=== PATIENT | female | born 1985 | race African-American/Black ===

== ENCOUNTER 2019-10-07 10:02 | Inpatient (IN) | payer OTHER ==
[~2019-10-07] VITALS: Ht 172.7 cm; Wt 81.6 kg
[2019-10-07] MEDS ORDERED: SODIUM CHLORIDE 0.9% 1,000 ML IV ONE (11:50)
[2019-10-07] MEDS ORDERED: ONDANSETRON HCL 4MG/2ML INJ IV ONE (12:00)
[2019-10-07] MEDS ORDERED: FAMOTIDINE 20MG/2ML VIAL IV ONE (12:00)
[2019-10-07 12:03] LABS: BASOPHILS % 0.5 % (0.0-2.0); HEMATOCRIT. 39.7 % (36.0-48.0); HEMOGLOBIN. 13.6 g/dL (12.0-16.0); LYMPHOCYTES % 12.5 % (20.0-50.0); MEAN CORPUSCULAR HEMOGLOBIN 33.7 pg (28.0-32.0); MEAN CORPUSCULAR VOLUME 98.2 fL (81.0-99.0); MEAN PLATELET VOLUME 8.1 fl (7.4-10.4); MONOCYTES % 11.5 % (2.0-8.0); NEUTROPHILS % 75.5 % (40.0-76.0); PLATELET 251 x1000/uL (130-400); RED BLOOD CELL COUNT 4.05 mill/uL (4.2-5.4); RED CELL DISTRIBUTION WIDTH 13.2 % (11.6-14.6)
[2019-10-07 12:08] LABS: CHLORIDE 106 mEq/L (98-107)
[2019-10-07 12:15] LABS: HCG SCREEN NEGATIVE
[2019-10-07 12:18] LABS: BETA HYDROXYBUTYRATE 1.9 mMol/L (0.0-0.3)
[2019-10-07 12:23] LABS: BG BASE EXCESS -7.1 mmol/L (-2.0-2.0); BG CARBOXYHEMOGLOBIN 0.2 % (0.5-1.5); BG DEOXYHEMOGLOBIN 3.1 % (0.0-5.0); BG FRACTION INSPIRED OXYGEN 21; BG METHEMOGLOBIN 0.1 % (0.0-1.5); BG OXYGEN SATURATION 96.9 % (92.0-98.5); BG OXYHEMOGLOBIN 96.6 % (94.0-97.0); BG PCO2 30.5 mmHg (35.0-45.0); BG PH 7.365 (7.350-7.450); BG SAMPLE SITE RIGHT RADIAL; BG TOTAL HEMOGLOBIN 13.2 g/dL (12.0-18.0); BG VENT MODE ROOM AIR
[2019-10-07 14:00] LABS: CLARITY URINE CLOUDY (CLEAR); COLOR URINE YELLOW (YELLOW); KETONES URINE 3+ (NEGATIVE); LEUKOCYTE ESTERASE URINE NEGATIVE (NEGATIVE); NITRITE URINE NEGATIVE (NEGATIVE); OCCULT BLOOD URINE NEGATIVE (NEGATIVE); PROTEIN URINE 1+ (NEGATIVE); SPECIFIC GRAVITY URINE 1.031 (1.005-1.030); UROBILINOGEN URINE 0.2 E.U./dL (0.2-1.0)
[2019-10-07] MEDS ORDERED: DEXTROSE 50% WATER 50ML SYRINGE IV PRN (16:15)
[2019-10-07] MEDS: BLOOD SUGAR DIAGNOSTIC STRIP TEST SCH (18:03)
[2019-10-07] MEDS: INSULIN LISPRO 100 UNITS/ML SUBCUT SCH (18:15)
[2019-10-07] MEDS: GUAIFENESIN/DM 600MG/30MG ER TAB 12HR PO SCH (18:15)
[2019-10-07] MEDS ORDERED: HYDROCODONE/ACETAMINOPHEN 5/325MG TABLET PO PRN (19:30)
[2019-10-07] MEDS ORDERED: ONDANSETRON HCL 4MG/2ML INJ IV PRN (19:30)
[2019-10-07] MEDS ORDERED: CLONIDINE 0.1MG TABLET PO PRN (19:30)
[2019-10-07] MEDS ORDERED: IPRATROPIUM/ALBUTEROL 0.5-3(2.5)MG/3ML NEB HHN PRN (19:30)
[2019-10-07] MEDS ORDERED: ACETAMINOPHEN 325MG TABLET PO PRN (19:30)
[2019-10-07] MEDS ORDERED: LORAZEPAM 0.5MG TABLET PO PRN (19:30)
[2019-10-07] MEDS ORDERED: DOCUSATE SODIUM 100MG CAPSULE PO PRN (19:30)
[2019-10-07] MEDS: SODIUM CHLORIDE 0.9% 1,000 ML IV SCH (23:08)
[2019-10-08] MEDS ORDERED: INSULIN GLARGINE UD 100 UNITS/ML SYR SUBCUT SCH (01:00)
[2019-10-08] MEDS: BLOOD SUGAR DIAGNOSTIC STRIP TEST SCH ×3 (01:21→12:51)
[2019-10-08 06:00] VITALS: BP 139/86
[2019-10-08 07:46] VITALS: BP 149/65
[2019-10-08] MEDS: INSULIN LISPRO 100 UNITS/ML SUBCUT SCH ×2 (07:50→13:08)
[2019-10-08 08:00] VITALS: BP 143/89
[2019-10-08] MEDS: GUAIFENESIN/DM 600MG/30MG ER TAB 12HR PO SCH (09:03)
[2019-10-08] MEDS: SODIUM CHLORIDE 0.9% 1,000 ML IV SCH (09:06)
[2019-10-08 09:11] LABS: BASOPHILS % 0.8 % (0.0-2.0); EOSINOPHILS % 0.1 % (0.0-5.0); HEMATOCRIT. 35.7 % (36.0-48.0); HEMOGLOBIN. 12.3 g/dL (12.0-16.0); LYMPHOCYTES % 21.5 % (20.0-50.0); MEAN CORPUSCULAR HEMOGLOBIN 33.1 pg (28.0-32.0); MEAN CORPUSCULAR VOLUME 96.4 fL (81.0-99.0); MEAN PLATELET VOLUME 7.8 fl (7.4-10.4); MONOCYTES % 10.8 % (2.0-8.0); NEUTROPHILS % 66.8 % (40.0-76.0); PLATELET 212 x1000/uL (130-400); RED BLOOD CELL COUNT 3.71 mill/uL (4.2-5.4); RED CELL DISTRIBUTION WIDTH 13.3 % (11.6-14.6)
[2019-10-08 09:21] LABS: CHLORIDE 107 mEq/L (98-107)
[2019-10-08] MEDS ORDERED: POTASSIUM CHLORIDE 20MEQ TABLET SR PO NR (10:30)
[2019-10-08] MEDS ORDERED: ACET650T37 MT (10:38)
[2019-10-08] MEDS ORDERED: ONDA4TAB5 MT (10:38)
[2019-10-08 14:00] VITALS: BP 150/90
[2019-10-08 14:11] VITALS: BP 150/90
== END 2019-10-08 14:31 | disposition home or self-care (01) | DRG 420 ==
LOC: ER 10:02 → 6EST 14:14 → EDBEDREQ 14:16 → EDBEDREQSVC 14:16 → ENRESERV 10-08 04:31
PROVIDERS: ADMIT Internal Medicine; ATTEND Internal Medicine
DX: E10.10 Type 1 diabetes mellitus with ketoacidosis without coma (principal); R65.10 Systemic inflammatory response syndrome (SIRS) of non-infectious origin without acute organ dysfunction; J11.1 Influenza due to unidentified influenza virus with other respiratory manifestations; D72.821 Monocytosis (symptomatic); Z79.4 Long term (current) use of insulin; Z90.49 Acquired absence of other specified parts of digestive tract
CPT/HCPCS: 36415; 36600; 71045; 76700; 80048; 80053; 81003; 82010; 82375; 82805; 82962; 84703; 85025; 87804; 99285; J1815; J2405; J3490; J7030

== ENCOUNTER 2019-12-31 17:48 | Inpatient (IN) | payer MEDICAID, OTHER ==
[~2019-12-31] VITALS: Ht 172.7 cm; Wt 81.6 kg
[~2019-12-31 17:48] MED LIST: ACET650T37 MT; ONDA4TAB5 MT
[2019-12-31] MEDS ORDERED: KETOROLAC 30MG/ML VIAL IV STA (18:29)
[2019-12-31] MEDS ORDERED: SODIUM CHLORIDE 0.9% 1,000 ML IV ONE ×2 (18:29→20:45)
[2019-12-31] MEDS ORDERED: ONDANSETRON HCL 4MG/2ML INJ IV STA (18:29)
[2019-12-31 19:16] LABS: CLARITY URINE CLEAR (CLEAR); COLOR URINE YELLOW (YELLOW); KETONES URINE 4+ (NEGATIVE); LEUKOCYTE ESTERASE URINE NEGATIVE (NEGATIVE); NITRITE URINE NEGATIVE (NEGATIVE); OCCULT BLOOD URINE 3+ (NEGATIVE); PH URINE 5.5 (4.5-8.0); PROTEIN URINE TRACE (NEGATIVE); SPECIFIC GRAVITY URINE 1.037 (1.005-1.030); UROBILINOGEN URINE 0.2 E.U./dL (0.2-1.0)
[2019-12-31 19:25] LABS: *AMPHETAMINES SCREEN URINE NEGATIVE (NEGATIVE); *BARBITURATES SCREEN URINE NEGATIVE (NEGATIVE); *BENZODIAZEPINES SCREEN URINE NEGATIVE (NEGATIVE); *COCAINE SCREEN URINE NEGATIVE (NEGATIVE); METHADONE URINE SCREEN NEGATIVE (NEGATIVE)
[2019-12-31 19:26] LABS: CANNABINOID URINE SCREEN PRESUMTIVE POSITIVE (NEGATIVE); OPIATES URINE SCREEN NEGATIVE (NEGATIVE); PHENCYCLIDINE URINE SCREEN NEGATIVE (NEGATIVE)
[2019-12-31 20:04] LABS: CHLORIDE 102 mEq/L (98-107)
[2019-12-31 20:08] LABS: ETHANOL BLOOD < 10 mg/dL
[2019-12-31 20:30] LABS: BASOPHILS % 0.6 % (0.0-2.0); EOSINOPHILS % 0.1 % (0.0-5.0); HEMOGLOBIN. 14.4 g/dL (12.0-16.0); MEAN CORPUSCULAR HEMOGLOBIN 33.1 pg (28.0-32.0); MEAN CORPUSCULAR VOLUME 96.5 fL (81.0-99.0); MEAN PLATELET VOLUME 8.5 fl (7.4-10.4); MONOCYTES % 3.6 % (2.0-8.0); NEUTROPHILS % 87.7 % (40.0-76.0); PLATELET 253 x1000/uL (130-400); RED BLOOD CELL COUNT 4.35 mill/uL (4.2-5.4); RED CELL DISTRIBUTION WIDTH 12.8 % (11.6-14.6)
[2019-12-31 20:38] LABS: INR 1.1
[2019-12-31] MEDS ORDERED: INSULIN REGULAR (HUMULIN R) 300UNITS/3ML SUBCUT ONE (20:45)
[2019-12-31] MEDS ORDERED: INSULIN REGULAR (DRIP) 100 UNITS in SODIUM CHLORIDE 0.9% 99 ML IV NR (22:15)
[2019-12-31] MEDS ORDERED: ONDANSETRON HCL 4MG/2ML INJ IV ONE (22:15)
[2019-12-31] MEDS ORDERED: INSULIN REGULAR (DRIP) 100 UNITS in SODIUM CHLORIDE 0.9% 99 ML IV ONE (22:15)
[2019-12-31 23:39] LABS: CHLORIDE 110 mEq/L (98-107)
[2019-12-31 23:43] LABS: BG BASE EXCESS -14.6 mmol/L (-2.0-2.0); BG CARBOXYHEMOGLOBIN 0.3 % (0.5-1.5); BG DEOXYHEMOGLOBIN 2.6 % (0.0-5.0); BG FRACTION INSPIRED OXYGEN 21; BG HCO3 ACT 9.9 mmol/L (22.0-26.0); BG METHEMOGLOBIN 0.1 % (0.0-1.5); BG OXYGEN SATURATION 97.4 % (92.0-98.5); BG PO2 104.8 mmHg (75.0-100.0); BG SAMPLE SITE LEFT BRACHIAL; BG TOTAL HEMOGLOBIN 12.7 g/dL (12.0-18.0); BG VENT MODE ROOM AIR
[2020-01-01] MEDS ORDERED: INSULIN REGULAR (HUMULIN R) 300UNITS/3ML SUBCUT ONE
[2020-01-01] MEDS ORDERED: HYDROCODONE/ACETAMINOPHEN 10/325MG TABLET PO PRN (00:15)
[2020-01-01] MEDS ORDERED: NA PHOS,M-B/NA PHOS,DI-BA ENEMA 118ML PR PRN (00:15)
[2020-01-01] MEDS ORDERED: CLONIDINE 0.1MG TABLET PO PRN (00:15)
[2020-01-01] MEDS ORDERED: DEXTROSE 50% WATER 50ML SYRINGE IV PRN (00:15)
[2020-01-01] MEDS ORDERED: DIPHENHYDRAMINE 50MG/ML VIAL IV PRN (00:15)
[2020-01-01] MEDS ORDERED: GUAIFENESIN 200MG/10ML SUGAR FREE UDC PO PRN (00:15)
[2020-01-01] MEDS ORDERED: DOCUSATE SODIUM 100MG CAPSULE PO PRN (00:15)
[2020-01-01] MEDS ORDERED: HYDRALAZINE 20MG/ML VIAL IV PRN (00:15)
[2020-01-01] MEDS ORDERED: IPRATROPIUM/ALBUTEROL 0.5-3(2.5)MG/3ML NEB NEB PRN (00:15)
[2020-01-01] MEDS ORDERED: MAGNESIUM/ALUMINUM HYDROXIDE/SIMETHICONE 30ML UDC PO PRN (00:15)
[2020-01-01] MEDS: SODIUM CHL 0.45% + KCL 20MEQ/L 1,000 ML IV SCH ×4 (00:58→18:00)
[2020-01-01] MEDS ORDERED: ONDANSETRON HCL 4MG/2ML INJ IV PRN (01:18)
[2020-01-01] MEDS ORDERED: MORPHINE SULFATE 2 MG/ML CPJ (NOT FOR IM USE) IV PRN (01:19)
[2020-01-01] MEDS: MORPHINE SULFATE 2 MG/ML CPJ (NOT FOR IM USE) IV PRN ×2 (06:13→20:56)
[2020-01-01] MEDS: ONDANSETRON HCL 4MG/2ML INJ IV PRN (06:13)
[2020-01-01] MEDS: SODIUM CHLORIDE 0.9% INJ 3ML FLUSH IVF SCH ×3 (07:30→21:34)
[2020-01-01 07:48] LABS: BG BASE EXCESS -12.4 mmol/L (-2.0-2.0); BG CARBOXYHEMOGLOBIN 0.3 % (0.5-1.5); BG DEOXYHEMOGLOBIN 2.5 % (0.0-5.0); BG FRACTION INSPIRED OXYGEN 21; BG HCO3 ACT 12.2 mmol/L (22.0-26.0); BG METHEMOGLOBIN 0.2 % (0.0-1.5); BG OXYGEN SATURATION 97.5 % (92.0-98.5); BG PCO2 25.3 mmHg (35.0-45.0); BG PH 7.302 (7.350-7.450); BG PO2 108.8 mmHg (75.0-100.0); BG SAMPLE SITE RIGHT RADIAL; BG TOTAL HEMOGLOBIN 12.9 g/dL (12.0-18.0); BG VENT MODE ROOM AIR
[2020-01-01 08:03] LABS: BASOPHILS % 0.9 % (0.0-2.0); EOSINOPHILS % 0.2 % (0.0-5.0); HEMATOCRIT. 36.6 % (36.0-48.0); HEMOGLOBIN. 12.7 g/dL (12.0-16.0); LYMPHOCYTES % 20.7 % (20.0-50.0); MEAN CORPUSCULAR VOLUME 95.1 fL (81.0-99.0); MEAN PLATELET VOLUME 8.4 fl (7.4-10.4); NEUTROPHILS % 69.2 % (40.0-76.0); PLATELET 243 x1000/uL (130-400); RED BLOOD CELL COUNT 3.85 mill/uL (4.2-5.4); RED CELL DISTRIBUTION WIDTH 12.6 % (11.6-14.6)
[2020-01-01 08:04] LABS: CHLORIDE 112 mEq/L (98-107)
[2020-01-01] MEDS: BLOOD SUGAR DIAGNOSTIC STRIP TEST SCH ×4 (09:00→21:00)
[2020-01-01 09:30] VITALS: BP 115/63
[2020-01-01] MEDS: ENOXAPARIN 40MG/0.4ML SYR SUBCUT SCH (10:03)
[2020-01-01] MEDS: INSULIN LISPRO 100 UNITS/ML SUBCUT SCH ×4 (10:04→21:00)
[2020-01-01] MEDS ORDERED: INSLIS SUBCUT (11:49)
[2020-01-01 12:00] VITALS: BP 115/63
[2020-01-01] MEDS: METOCLOPRAMIDE HCL 10MG/2ML VIAL IV SCH ×2 (13:28→19:56)
[2020-01-01 16:00] VITALS: BP 110/61
[2020-01-01] MEDS: CEFTRIAXONE 1 G PREMIX 50 ML IV SCH (19:56)
[2020-01-01 20:00] VITALS: BP 136/55
[2020-01-01] MEDS: ACETAMINOPHEN 325MG TABLET PO PRN (21:36)
[2020-01-02] VITALS (7 sets, daily range): BP systolic 100–143; BP diastolic 46–81
[2020-01-02] MEDS: METOCLOPRAMIDE HCL 10MG/2ML VIAL IV SCH ×5 (00:41→18:11)
[2020-01-02] MEDS: SODIUM CHL 0.45% + KCL 20MEQ/L 1,000 ML IV SCH ×3 (00:41→15:03)
[2020-01-02] MEDS: MORPHINE SULFATE 2 MG/ML CPJ (NOT FOR IM USE) IV PRN ×3 (02:25→20:53)
[2020-01-02] MEDS: LORAZEPAM 2MG/ML CPJ IV PRN ×2 (05:09→18:29)
[2020-01-02] MEDS: SODIUM CHLORIDE 0.9% INJ 3ML FLUSH IVF SCH ×2 (05:09→13:36)
[2020-01-02] MEDS: BLOOD SUGAR DIAGNOSTIC STRIP TEST SCH ×4 (06:16→20:46)
[2020-01-02] MEDS: INSULIN LISPRO 100 UNITS/ML SUBCUT SCH ×4 (06:23→20:52)
[2020-01-02] MEDS: ENOXAPARIN 40MG/0.4ML SYR SUBCUT SCH (09:07)
[2020-01-02 11:26] LABS: BASOPHILS % 0.5 % (0.0-2.0); HEMATOCRIT. 39.6 % (36.0-48.0); HEMOGLOBIN. 13.1 g/dL (12.0-16.0); LYMPHOCYTES % 18.3 % (20.0-50.0); MEAN CORPUSCULAR HEMOGLOBIN 32.4 pg (28.0-32.0); MEAN CORPUSCULAR VOLUME 97.8 fL (81.0-99.0); MEAN PLATELET VOLUME 8.3 fl (7.4-10.4); MONOCYTES % 9.3 % (2.0-8.0); NEUTROPHILS % 71.9 % (40.0-76.0); PLATELET 249 x1000/uL (130-400); RED BLOOD CELL COUNT 4.05 mill/uL (4.2-5.4); RED CELL DISTRIBUTION WIDTH 12.9 % (11.6-14.6)
[2020-01-02 11:37] LABS: CHLORIDE 107 mEq/L (98-107)
[2020-01-02] MEDS: ONDANSETRON HCL 4MG/2ML INJ IV PRN (16:26)
[2020-01-02] MEDS: CEFTRIAXONE 1 G PREMIX 50 ML IV SCH (16:43)
[2020-01-03] VITALS: BP 117/68
[2020-01-03] MEDS: METOCLOPRAMIDE HCL 10MG/2ML VIAL IV SCH ×3 (00:46→12:04)
[2020-01-03] MEDS: SODIUM CHLORIDE 0.9% INJ 3ML FLUSH IVF SCH ×2 (00:46→05:23)
[2020-01-03] MEDS: LORAZEPAM 2MG/ML CPJ IV PRN (02:44)
[2020-01-03] MEDS: ACETAMINOPHEN 325MG TABLET PO PRN (03:24)
[2020-01-03 04:00] VITALS: BP 128/61
[2020-01-03] MEDS: MORPHINE SULFATE 2 MG/ML CPJ (NOT FOR IM USE) IV PRN (04:16)
[2020-01-03] MEDS: INSULIN LISPRO 100 UNITS/ML SUBCUT SCH ×2 (05:49→12:26)
[2020-01-03] MEDS: BLOOD SUGAR DIAGNOSTIC STRIP TEST SCH ×2 (05:49→12:05)
[2020-01-03] MEDS: SODIUM CHL 0.45% + KCL 20MEQ/L 1,000 ML IV SCH ×2 (06:03→08:59)
[2020-01-03 08:30] VITALS: BP 146/78
[2020-01-03] MEDS: ENOXAPARIN 40MG/0.4ML SYR SUBCUT SCH (08:59)
[2020-01-03 10:47] VITALS: BP 145/67
[2020-01-03 12:00] VITALS: BP 139/88
[2020-01-03 12:52] LABS: CHLORIDE 106 mEq/L (98-107)
== END 2020-01-03 13:35 | disposition home or self-care (01) | DRG 420 ==
LOC: ER 17:48 → 5WST 23:56 → EDBEDREQ 01-01 00:16 → EDBEDREQSVC 01-01 05:42 → ENRESERV 01-01 07:52
PROVIDERS: ADMIT Internal Medicine; ATTEND Internal Medicine
DX: E11.10 Type 2 diabetes mellitus with ketoacidosis without coma (principal); E46 Unspecified protein-calorie malnutrition; K76.0 Fatty (change of) liver, not elsewhere classified; K52.9 Noninfective gastroenteritis and colitis, unspecified; N39.0 Urinary tract infection, site not specified; N83.201 Unspecified ovarian cyst, right side; Z90.49 Acquired absence of other specified parts of digestive tract; Z68.27 Body mass index [BMI] 27.0-27.9, adult; Z79.899 Other long term (current) drug therapy
CPT/HCPCS: 36415; 36600; 74176; 80048; 80053; 80305; 80320; 81003; 82010; 82375; 82805; 82962; 85025; 99291; J0696; J1200; J1650; J1815; J1885; J2060; J2270; J2405; J2765; J3480; J7030; J7050; G0480

== ENCOUNTER 2020-01-11 13:46 | Inpatient (IN) | payer MEDICAID, OTHER ==
[~2020-01-11] VITALS: Ht 160 cm; Wt 65.8 kg
[~2020-01-11 13:46] MED LIST changes: +INSLIS SUBCUT
[2020-01-11] MEDS ORDERED: SODIUM CHLORIDE 0.9% 1,000 ML IV ONE (13:50)
[2020-01-11] MEDS ORDERED: KETOROLAC 30MG/ML VIAL IV ONE (14:00)
[2020-01-11 14:49] LABS: BG BASE EXCESS -10.6 mmol/L (-2.0-2.0); BG CARBOXYHEMOGLOBIN 0.3 % (0.5-1.5); BG DEOXYHEMOGLOBIN 2.1 % (0.0-5.0); BG FRACTION INSPIRED OXYGEN 21; BG HCO3 ACT 12.6 mmol/L (22.0-26.0); BG METHEMOGLOBIN 0.1 % (0.0-1.5); BG OXYGEN SATURATION 97.9 % (92.0-98.5); BG OXYHEMOGLOBIN 97.5 % (94.0-97.0); BG PCO2 22.3 mmHg (35.0-45.0); BG PH 7.369 (7.350-7.450); BG PO2 111.6 mmHg (75.0-100.0); BG SAMPLE SITE RIGHT BRACHIAL; BG TOTAL HEMOGLOBIN 13.7 g/dL (12.0-18.0); BG VENT MODE ROOM AIR
[2020-01-11 15:19] LABS: BASOPHILS % 0.6 % (0.0-2.0); EOSINOPHILS % 0.1 % (0.0-5.0); HEMATOCRIT. 41.3 % (36.0-48.0); HEMOGLOBIN. 14.2 g/dL (12.0-16.0); LYMPHOCYTES % 17.8 % (20.0-50.0); MEAN CORPUSCULAR HEMOGLOBIN 32.6 pg (28.0-32.0); MEAN CORPUSCULAR VOLUME 94.4 fL (81.0-99.0); MEAN PLATELET VOLUME 8.7 fl (7.4-10.4); MONOCYTES % 10.6 % (2.0-8.0); NEUTROPHILS % 70.9 % (40.0-76.0); PLATELET 321 x1000/uL (130-400); RED BLOOD CELL COUNT 4.37 mill/uL (4.2-5.4); RED CELL DISTRIBUTION WIDTH 13.2 % (11.6-14.6)
[2020-01-11 15:27] LABS: CHLORIDE 87 mEq/L (98-107)
[2020-01-11 15:31] LABS: ETHANOL BLOOD < 10 mg/dL
[2020-01-11 15:36] LABS: HCG SCREEN NEGATIVE
[2020-01-11 15:44] LABS: CARBAMAZEPINE < 0.5 ug/mL (4-12); PHENOBARBITAL < 2.1 ug/mL (15.0-40.0); VALPROIC ACID < 3.0 ug/mL (50-100)
[2020-01-11] MEDS ORDERED: MORPHINE SULFATE 4 MG/ML CPJ (NOT FOR IM USE) IV ONE (16:15)
[2020-01-11] MEDS ORDERED: INSULIN REGULAR (HUMULIN R) 300UNITS/3ML IV ONE (16:15)
[2020-01-11 16:24] LABS: CLARITY URINE CLEAR (CLEAR); COLOR URINE YELLOW (YELLOW); KETONES URINE 4+ (NEGATIVE); LEUKOCYTE ESTERASE URINE NEGATIVE (NEGATIVE); NITRITE URINE NEGATIVE (NEGATIVE); OCCULT BLOOD URINE NEGATIVE (NEGATIVE); PROTEIN URINE NEGATIVE (NEGATIVE); SPECIFIC GRAVITY URINE 1.028 (1.005-1.030); UROBILINOGEN URINE 0.2 E.U./dL (0.2-1.0)
[2020-01-11 16:45] LABS: *BENZODIAZEPINES SCREEN URINE NEGATIVE (NEGATIVE); *COCAINE SCREEN URINE NEGATIVE (NEGATIVE)
[2020-01-11 16:46] LABS: *AMPHETAMINES SCREEN URINE NEGATIVE (NEGATIVE); *BARBITURATES SCREEN URINE NEGATIVE (NEGATIVE); CANNABINOID URINE SCREEN NEGATIVE (NEGATIVE); METHADONE URINE SCREEN NEGATIVE (NEGATIVE); OPIATES URINE SCREEN NEGATIVE (NEGATIVE); PHENCYCLIDINE URINE SCREEN NEGATIVE (NEGATIVE)
[2020-01-11] MEDS ORDERED: ACETAMINOPHEN 325MG TABLET PO PRN (17:00)
[2020-01-11] MEDS ORDERED: ONDANSETRON HCL 4MG/2ML INJ IV PRN (17:00)
[2020-01-11 19:00] VITALS: BP 105/69
[2020-01-11 20:00] VITALS: BP 98/59
[2020-01-11] MEDS: BLOOD SUGAR DIAGNOSTIC STRIP TEST SCH (21:00)
[2020-01-11] MEDS: SODIUM CHLORIDE 0.9% 1,000 ML IV SCH (21:43)
[2020-01-11] MEDS: ENOXAPARIN 40MG/0.4ML SYR SUBCUT SCH (21:52)
[2020-01-11] MEDS: INSULIN LISPRO 100 UNITS/ML SUBCUT SCH (22:11)
[2020-01-11] MEDS: MORPHINE SULFATE 2 MG/ML CPJ (NOT FOR IM USE) IV PRN (22:12)
[2020-01-11 23:42] LABS: CHLORIDE 96 mEq/L (98-107)
[2020-01-12] VITALS: BP 96/60
[2020-01-12] MEDS ORDERED: POTASSIUM CHLORIDE 20MEQ TABLET SR PO SCH (00:29)
[2020-01-12] MEDS: SODIUM CHLORIDE 0.9% 1,000 ML IV SCH ×4 (00:36→22:10)
[2020-01-12 04:00] VITALS: BP 106/56
[2020-01-12] MEDS: BLOOD SUGAR DIAGNOSTIC STRIP TEST SCH ×4 (06:00→20:07)
[2020-01-12] MEDS: MORPHINE SULFATE 2 MG/ML CPJ (NOT FOR IM USE) IV PRN ×3 (06:01→21:25)
[2020-01-12] MEDS: INSULIN LISPRO 100 UNITS/ML SUBCUT SCH ×5 (06:11→20:07)
[2020-01-12 08:00] VITALS: BP 100/42
[2020-01-12 11:50] VITALS: BP 97/48
[2020-01-12] MEDS ORDERED: INSULIN LISPRO 100 UNITS/ML SUBCUT SCH (12:30)
[2020-01-12 16:00] VITALS: BP 91/42
[2020-01-12 16:03] LABS: BASOPHILS % 0.4 % (0.0-2.0); EOSINOPHILS % 0.1 % (0.0-5.0); HEMATOCRIT. 33.5 % (36.0-48.0); HEMOGLOBIN. 11.6 g/dL (12.0-16.0); LYMPHOCYTES % 19.8 % (20.0-50.0); MEAN CORPUSCULAR HEMOGLOBIN 32.6 pg (28.0-32.0); MEAN PLATELET VOLUME 7.9 fl (7.4-10.4); MONOCYTES % 13.8 % (2.0-8.0); NEUTROPHILS % 65.9 % (40.0-76.0); PLATELET 304 x1000/uL (130-400); RED BLOOD CELL COUNT 3.56 mill/uL (4.2-5.4); RED CELL DISTRIBUTION WIDTH 13.2 % (11.6-14.6)
[2020-01-12 16:17] LABS: CHLORIDE 103 mEq/L (98-107)
[2020-01-12] MEDS: ENOXAPARIN 40MG/0.4ML SYR SUBCUT SCH (17:01)
[2020-01-12 20:00] VITALS: BP 96/51
[2020-01-12] MEDS: INSULIN GLARGINE UD 100 UNITS/ML SYR SUBCUT SCH (21:15)
[2020-01-12] MEDS ORDERED: INSULIN GLARGINE UD 100 UNITS/ML SYR SUBCUT SCH (22:00)
[2020-01-13] VITALS: BP 101/38
[2020-01-13] MEDS: MORPHINE SULFATE 2 MG/ML CPJ (NOT FOR IM USE) IV PRN ×4 (02:59→21:50)
[2020-01-13 04:00] VITALS: BP 104/54
[2020-01-13] MEDS: BLOOD SUGAR DIAGNOSTIC STRIP TEST SCH ×4 (05:58→21:00)
[2020-01-13] MEDS: INSULIN LISPRO 100 UNITS/ML SUBCUT SCH ×7 (05:58→21:00)
[2020-01-13] MEDS: SODIUM CHLORIDE 0.9% 1,000 ML IV SCH ×2 (06:16→15:44)
[2020-01-13 06:43] LABS: BASOPHILS % 0.3 % (0.0-2.0); EOSINOPHILS % 0.4 % (0.0-5.0); HEMATOCRIT. 29.8 % (36.0-48.0); HEMOGLOBIN. 10.7 g/dL (12.0-16.0); LYMPHOCYTES % 28.4 % (20.0-50.0); MEAN CORPUSCULAR HEMOGLOBIN 33.2 pg (28.0-32.0); MEAN CORPUSCULAR VOLUME 92.5 fL (81.0-99.0); MEAN PLATELET VOLUME 7.8 fl (7.4-10.4); MONOCYTES % 13.9 % (2.0-8.0); PLATELET 297 x1000/uL (130-400); RED BLOOD CELL COUNT 3.22 mill/uL (4.2-5.4); RED CELL DISTRIBUTION WIDTH 13.1 % (11.6-14.6)
[2020-01-13 07:21] LABS: CHLORIDE 103 mEq/L (98-107)
[2020-01-13 08:00] VITALS: BP 133/88
[2020-01-13] MEDS: INSULIN GLARGINE UD 100 UNITS/ML SYR SUBCUT SCH ×2 (10:33→22:31)
[2020-01-13 12:00] VITALS: BP 135/68
[2020-01-13] MEDS ORDERED: POTASSIUM CHLORIDE 20MEQ TABLET SR PO NR (15:15)
[2020-01-13] MEDS: LEVETIRACETAM 500MG PREMIX 100 ML IV SCH ×2 (15:43→22:14)
[2020-01-13] MEDS: LACTULOSE 20G/30ML UDC PO SCH ×3 (15:44→17:37)
[2020-01-13] MEDS: GABAPENTIN 100MG CAPSULE PO SCH ×2 (15:45→21:51)
[2020-01-13 16:00] VITALS: BP 108/85
[2020-01-13 16:29] LABS: CREATINE KINASE 132 IU/L (26-192)
[2020-01-13 16:32] LABS: T4 FREE 1.08 ng/dL (0.76-1.46)
[2020-01-13 16:51] LABS: FOLIC ACID (FOLATE) SERUM 9.1 ng/mL (>5.38)
[2020-01-13] MEDS: ENOXAPARIN 40MG/0.4ML SYR SUBCUT SCH (17:28)
[2020-01-13] MEDS: DOCUSATE SODIUM 100MG CAPSULE PO SCH (17:28)
[2020-01-13] MEDS: LIDOCAINE 5% PATCH TOP SCH (17:29)
[2020-01-13] MEDS ORDERED: CEFTRIAXONE 1 G PREMIX 50 ML IV SCH (18:30)
[2020-01-13 20:00] VITALS: BP 140/94
[2020-01-13] MEDS: ONDANSETRON HCL 4MG/2ML INJ IV PRN (21:47)
[2020-01-13] MEDS: POLYETHYLENE GLYCOL 3350 (17GM) 1 DOSE PACK PO SCH (21:51)
[2020-01-13] MEDS: CEFTRIAXONE 1 G PREMIX 50 ML IV SCH (21:51)
[2020-01-14] VITALS: BP 120/75
[2020-01-14] MEDS: ONDANSETRON HCL 4MG/2ML INJ IV PRN (02:57)
[2020-01-14] MEDS: MORPHINE SULFATE 2 MG/ML CPJ (NOT FOR IM USE) IV PRN ×3 (02:59→20:55)
[2020-01-14 04:00] VITALS: BP 115/64
[2020-01-14] MEDS: SODIUM CHLORIDE 0.9% 1,000 ML IV SCH ×2 (04:40→17:22)
[2020-01-14] MEDS: DEXTROSE 50% WATER 50ML SYRINGE IV PRN ×2 (05:33→16:41)
[2020-01-14] MEDS: GABAPENTIN 100MG CAPSULE PO SCH ×3 (05:41→20:53)
[2020-01-14] MEDS: BLOOD SUGAR DIAGNOSTIC STRIP TEST SCH ×4 (05:55→21:19)
[2020-01-14] MEDS: INSULIN LISPRO 100 UNITS/ML SUBCUT SCH ×7 (06:00→20:55)
[2020-01-14 06:36] LABS: CHLORIDE 106 mEq/L (98-107)
[2020-01-14 08:00] VITALS: BP 148/117
[2020-01-14] MEDS: DOCUSATE SODIUM 100MG CAPSULE PO SCH ×2 (08:39→16:44)
[2020-01-14] MEDS: LEVETIRACETAM 500MG PREMIX 100 ML IV SCH ×2 (08:40→20:55)
[2020-01-14] MEDS: LIDOCAINE 5% PATCH TOP SCH (08:54)
[2020-01-14] MEDS: INSULIN GLARGINE UD 100 UNITS/ML SYR SUBCUT SCH (10:46)
[2020-01-14 12:00] VITALS: BP 120/93
[2020-01-14] MEDS ORDERED: KCL 20MEQ/100ML PREMIX 100 ML IV NR (14:00)
[2020-01-14 16:00] VITALS: BP 118/91
[2020-01-14] MEDS: POTASSIUM CHLORIDE INJ 40 MEQ in DEXT 5% WATER 500 ML IV NR ×2 (16:40→18:21)
[2020-01-14] MEDS ORDERED: INSULIN LISPRO 100 UNITS/ML SUBCUT SCH (16:45)
[2020-01-14] MEDS: ENOXAPARIN 40MG/0.4ML SYR SUBCUT SCH (16:46)
[2020-01-14] MEDS: CEFTRIAXONE 1 G PREMIX 50 ML IV SCH (18:12)
[2020-01-14 20:00] VITALS: BP 97/57
[2020-01-14] MEDS: POLYETHYLENE GLYCOL 3350 (17GM) 1 DOSE PACK PO SCH (21:00)
[2020-01-15] VITALS: BP 104/53
[2020-01-15] MEDS: MORPHINE SULFATE 2 MG/ML CPJ (NOT FOR IM USE) IV PRN ×2 (01:42→09:50)
[2020-01-15 04:00] VITALS: BP 122/76
[2020-01-15] MEDS: SODIUM CHLORIDE 0.9% 1,000 ML IV SCH (06:01)
[2020-01-15] MEDS: BLOOD SUGAR DIAGNOSTIC STRIP TEST SCH ×2 (06:21→11:45)
[2020-01-15] MEDS: INSULIN LISPRO 100 UNITS/ML SUBCUT SCH ×2 (06:40→12:34)
[2020-01-15] MEDS: GABAPENTIN 100MG CAPSULE PO SCH ×2 (06:40→14:03)
[2020-01-15 08:00] VITALS: BP 116/54
[2020-01-15] MEDS: DOCUSATE SODIUM 100MG CAPSULE PO SCH (08:25)
[2020-01-15] MEDS: LIDOCAINE 5% PATCH TOP SCH (08:26)
[2020-01-15] MEDS: LEVETIRACETAM 500MG PREMIX 100 ML IV SCH (08:50)
[2020-01-15] MEDS ORDERED: INSULIN LISPRO 100 UNITS/ML SUBCUT SCH (11:45)
[2020-01-15 11:53] VITALS: BP 103/55
[2020-01-15 12:00] VITALS: BP 108/61
[2020-01-15 16:00] VITALS: BP 103/55
== END 2020-01-15 16:25 | DRG 420 ==
LOC: ER 14:01 → MICUSO 16:07 → 5WST 18:46
PROVIDERS: ADMIT Internal Medicine; ATTEND Internal Medicine
DX: E11.00 Type 2 diabetes mellitus with hyperosmolarity without nonketotic hyperglycemic-hyperosmolar coma (NKHHC) (principal); G92 Toxic encephalopathy; E87.2 Acidosis; E11.42 Type 2 diabetes mellitus with diabetic polyneuropathy; R13.11 Dysphagia, oral phase; E11.65 Type 2 diabetes mellitus with hyperglycemia; E11.10 Type 2 diabetes mellitus with ketoacidosis without coma; G40.909 Epilepsy, unspecified, not intractable, without status epilepticus; I10 Essential (primary) hypertension; E87.1 Hypo-osmolality and hyponatremia; R26.2 Difficulty in walking, not elsewhere classified; R74.0 Nonspecific elevation of levels of transaminase and lactic acid dehydrogenase [LDH]; D64.9 Anemia, unspecified; K59.00 Constipation, unspecified; R33.9 Retention of urine, unspecified; D72.829 Elevated white blood cell count, unspecified; Z79.4 Long term (current) use of insulin; Z90.49 Acquired absence of other specified parts of digestive tract; Z79.1 Long term (current) use of non-steroidal anti-inflammatories (NSAID); Z79.899 Other long term (current) drug therapy; Z91.19 Patient's noncompliance with other medical treatment and regimen; Z87.440 Personal history of urinary (tract) infections
CPT/HCPCS: 36415; 36600; 70551; 71045; 72141; 72146; 72148; 80048; 80053; 80156; 80165; 80184; 80185; 80305; 80320; 81003; 82140; 82375; 82550; 82607; 82746; 82805; 82962; 83036; 84439; 84443; 84481; 84484; 84703; 85025; 92610; 97116; 97162; 97166; 99285; J0696; J1650; J1815; J1885; J1953; J2270; J2405; J3480; J7030; J7060; G0480

== ENCOUNTER 2020-01-21 17:14 | Inpatient (IN) | payer MEDICAID, OTHER ==
[~2020-01-21] VITALS: Ht 167.6 cm; Wt 74.8 kg
[2020-01-21] MEDS ORDERED: OXYCODONE HCL 5MG TABLET PO PRN (17:30)
[2020-01-21] MEDS ORDERED: ONDANSETRON HCL 4MG TABLET PO PRN (17:30)
[2020-01-21] MEDS ORDERED: DEXTROSE 50% WATER 50ML SYRINGE IV PRN (17:30)
[2020-01-21 17:38] VITALS: BP 120/80
[2020-01-21 20:00] VITALS: BP 120/102
[2020-01-21] MEDS: LAMOTRIGINE 100MG TABLET PO SCH (20:33)
[2020-01-21] MEDS: OXYCODONE HCL 5MG TABLET PO PRN (20:34)
[2020-01-21] MEDS: BLOOD SUGAR DIAGNOSTIC STRIP TEST SCH (20:42)
[2020-01-21] MEDS: POLYETHYLENE GLYCOL 3350 (17GM) 1 DOSE PACK PO SCH (20:43)
[2020-01-21] MEDS: CEFTRIAXONE 1 G PREMIX 50 ML IV SCH (20:53)
[2020-01-21] MEDS: SODIUM CHLORIDE 0.9% 1,000 ML IV SCH (20:53)
[2020-01-21] MEDS: INSULIN LISPRO 100 UNITS/ML SUBCUT SCH (21:14)
[2020-01-21] MEDS: INSULIN GLARGINE UD 100 UNITS/ML SYR SUBCUT SCH (21:15)
[2020-01-22] VITALS (7 sets, daily range): BP systolic 80–145; BP diastolic 48–96
[2020-01-22] MEDS: DIPHENHYDRAMINE 50MG/ML VIAL IV PRN ×4 (01:07→20:18)
[2020-01-22] MEDS: OXYCODONE HCL 5MG TABLET PO PRN ×3 (01:15→10:12)
[2020-01-22 05:46] LABS: CHLORIDE 100 mEq/L (98-107)
[2020-01-22] MEDS: BLOOD SUGAR DIAGNOSTIC STRIP TEST SCH ×4 (06:07→20:27)
[2020-01-22] MEDS: INSULIN LISPRO 100 UNITS/ML SUBCUT SCH ×4 (07:10→20:27)
[2020-01-22 08:52] LABS: HEMOGLOBIN 9.9 g/dL (12.0-16.0); MEAN CORPUSCULAR VOLUME 93.4 fL (81.0-99.0); PLATELET 333 x1000/uL (130-400); RED CELL DISTRIBUTION WIDTH 13.4 % (11.6-14.6)
[2020-01-22] MEDS: SODIUM CHLORIDE 0.9% 1,000 ML IV SCH ×2 (08:56→18:19)
[2020-01-22] MEDS: LAMOTRIGINE 100MG TABLET PO SCH ×2 (09:03→20:19)
[2020-01-22] MEDS: LACTULOSE 20G/30ML UDC PO PRN (09:03)
[2020-01-22] MEDS: DOCUSATE SODIUM 100MG CAPSULE PO SCH ×2 (09:03→17:00)
[2020-01-22] MEDS: FLUDROCORTISONE ACETATE 0.1MG TABLET PO SCH ×2 (09:03→17:00)
[2020-01-22] MEDS: BISACODYL 5MG TABLET PO PRN (09:03)
[2020-01-22] MEDS: LIDOCAINE 5% PATCH TOP SCH (09:05)
[2020-01-22] MEDS: MIDODRINE HCL 2.5MG TABLET PO SCH ×3 (09:16→17:00)
[2020-01-22] MEDS: INSULIN GLARGINE UD 100 UNITS/ML SYR SUBCUT SCH ×2 (10:13→20:34)
[2020-01-22] MEDS: ENOXAPARIN 40MG/0.4ML SYR SUBCUT SCH (12:00)
[2020-01-22] MEDS ORDERED: HYDROCODONE/ACETAMINOPHEN 5/325MG TABLET PO PRN (19:30)
[2020-01-22] MEDS: POLYETHYLENE GLYCOL 3350 (17GM) 1 DOSE PACK PO SCH (20:23)
[2020-01-22] MEDS: CEFTRIAXONE 1 G PREMIX 50 ML IV SCH (20:31)
[2020-01-22] MEDS ORDERED: ERGOCALCIFEROL 50000UNITS CAPSULE PO SCH (21:00)
[2020-01-23] VITALS (7 sets, daily range): BP systolic 112–147; BP diastolic 63–93
[2020-01-23] MEDS: HYDROCODONE/ACETAMINOPHEN 5/325MG TABLET PO PRN ×5 (00:13→23:47)
[2020-01-23] MEDS: SODIUM CHLORIDE 0.9% 1,000 ML IV SCH ×2 (04:34→21:35)
[2020-01-23] MEDS: DIPHENHYDRAMINE 50MG/ML VIAL IV PRN ×3 (04:35→18:29)
[2020-01-23] MEDS: BLOOD SUGAR DIAGNOSTIC STRIP TEST SCH ×4 (06:36→21:00)
[2020-01-23] MEDS: INSULIN LISPRO 100 UNITS/ML SUBCUT SCH ×4 (06:36→23:37)
[2020-01-23 08:33] LABS: CHLORIDE 101 mEq/L (98-107)
[2020-01-23 08:52] LABS: BASOPHILS % 2.8 % (0.0-2.0); EOSINOPHILS % 0.6 % (0.0-5.0); HEMATOCRIT. 27.9 % (36.0-48.0); HEMOGLOBIN. 10.2 g/dL (12.0-16.0); MEAN CORPUSCULAR HEMOGLOBIN 33.7 pg (28.0-32.0); MEAN CORPUSCULAR VOLUME 92.3 fL (81.0-99.0); MEAN PLATELET VOLUME 7.1 fl (7.4-10.4); MONOCYTES % 11.3 % (2.0-8.0); NEUTROPHILS % 48.3 % (40.0-76.0); PLATELET 363 x1000/uL (130-400); RED BLOOD CELL COUNT 3.02 mill/uL (4.2-5.4); RED CELL DISTRIBUTION WIDTH 13.5 % (11.6-14.6)
[2020-01-23] MEDS: DOCUSATE SODIUM 100MG CAPSULE PO SCH ×3 (09:00→16:43)
[2020-01-23] MEDS: MIDODRINE HCL 2.5MG TABLET PO SCH ×3 (09:27→16:42)
[2020-01-23] MEDS: LAMOTRIGINE 100MG TABLET PO SCH ×2 (09:27→21:33)
[2020-01-23] MEDS: FLUDROCORTISONE ACETATE 0.1MG TABLET PO SCH ×2 (09:27→16:42)
[2020-01-23] MEDS: ENOXAPARIN 40MG/0.4ML SYR SUBCUT SCH (09:28)
[2020-01-23] MEDS: LIDOCAINE 5% PATCH TOP SCH (09:29)
[2020-01-23] MEDS: INSULIN GLARGINE UD 100 UNITS/ML SYR SUBCUT SCH ×2 (09:29→23:40)
[2020-01-23] MEDS ORDERED: NA PHOS,M-B/NA PHOS,DI-BA ENEMA 118ML PR PRN (15:45)
[2020-01-23] MEDS: POLYETHYLENE GLYCOL 3350 (17GM) 1 DOSE PACK PO SCH (21:00)
[2020-01-23] MEDS: CEFTRIAXONE 1 G PREMIX 50 ML IV SCH (21:33)
[2020-01-24 04:00] VITALS: BP 142/92
[2020-01-24] MEDS: DIPHENHYDRAMINE 50MG/ML VIAL IV PRN ×4 (04:36→22:16)
[2020-01-24] MEDS: BLOOD SUGAR DIAGNOSTIC STRIP TEST SCH ×4 (06:23→21:00)
[2020-01-24] MEDS: INSULIN LISPRO 100 UNITS/ML SUBCUT SCH ×4 (06:42→21:00)
[2020-01-24 08:00] VITALS: BP_SYST 114; BP_SYST 117; BP_SYST 160; BP_DIAS 138; BP_DIAS 75; BP_DIAS 76
[2020-01-24] MEDS: LIDOCAINE 5% PATCH TOP SCH (08:23)
[2020-01-24] MEDS: ENOXAPARIN 40MG/0.4ML SYR SUBCUT SCH (08:23)
[2020-01-24] MEDS: HYDROCODONE/ACETAMINOPHEN 5/325MG TABLET PO PRN ×4 (08:24→22:15)
[2020-01-24] MEDS: FLUDROCORTISONE ACETATE 0.1MG TABLET PO SCH (08:24)
[2020-01-24] MEDS: MIDODRINE HCL 2.5MG TABLET PO SCH ×3 (08:24→17:43)
[2020-01-24] MEDS: DOCUSATE SODIUM 100MG CAPSULE PO SCH ×2 (08:24→17:42)
[2020-01-24] MEDS: LAMOTRIGINE 100MG TABLET PO SCH ×2 (08:24→22:08)
[2020-01-24] MEDS: INSULIN GLARGINE UD 100 UNITS/ML SYR SUBCUT SCH ×2 (09:41→22:19)
[2020-01-24] MEDS: SODIUM CHLORIDE 0.9% 1,000 ML IV SCH ×2 (09:44→20:19)
[2020-01-24 12:00] VITALS: BP 156/99
[2020-01-24 16:00] VITALS: BP 156/105
[2020-01-24 20:00] VITALS: BP 124/80
[2020-01-24] MEDS: CEFTRIAXONE 1 G PREMIX 50 ML IV SCH (20:19)
[2020-01-24] MEDS: POLYETHYLENE GLYCOL 3350 (17GM) 1 DOSE PACK PO SCH (21:00)
[2020-01-25] VITALS: BP_SYST 103; BP_SYST 92; BP_DIAS 52; BP_DIAS 59
[2020-01-25] MEDS: HYDROCODONE/ACETAMINOPHEN 5/325MG TABLET PO PRN ×5 (03:02→22:46)
[2020-01-25 04:00] VITALS: BP 132/85
[2020-01-25] MEDS: DIPHENHYDRAMINE 50MG/ML VIAL IV PRN ×6 (04:21→18:35)
[2020-01-25] MEDS: BLOOD SUGAR DIAGNOSTIC STRIP TEST SCH ×4 (06:37→20:22)
[2020-01-25] MEDS: SODIUM CHLORIDE 0.9% 1,000 ML IV SCH ×2 (06:38→16:00)
[2020-01-25] MEDS: INSULIN LISPRO 100 UNITS/ML SUBCUT SCH ×4 (06:50→20:32)
[2020-01-25 08:00] VITALS: BP 130/87
[2020-01-25 09:13] LABS: CHLORIDE 99 mEq/L (98-107)
[2020-01-25] MEDS: LACTULOSE 20G/30ML UDC PO PRN (09:18)
[2020-01-25] MEDS: ENOXAPARIN 40MG/0.4ML SYR SUBCUT SCH (09:19)
[2020-01-25] MEDS: BISACODYL 5MG TABLET PO PRN (09:20)
[2020-01-25] MEDS: FLUDROCORTISONE ACETATE 0.1MG TABLET PO SCH (09:22)
[2020-01-25] MEDS: INSULIN GLARGINE UD 100 UNITS/ML SYR SUBCUT SCH ×2 (09:23→22:21)
[2020-01-25] MEDS: SULFAMETHOXAZOLE/TRIMETHOPRIM 800/160MG TABLET PO SCH ×2 (09:23→20:28)
[2020-01-25] MEDS: MIDODRINE HCL 2.5MG TABLET PO SCH ×3 (09:23→17:07)
[2020-01-25] MEDS: DOCUSATE SODIUM 100MG CAPSULE PO SCH ×2 (09:24→17:00)
[2020-01-25] MEDS: LIDOCAINE 5% PATCH TOP SCH (09:25)
[2020-01-25] MEDS: LAMOTRIGINE 100MG TABLET PO SCH ×2 (09:25→20:28)
[2020-01-25 10:42] LABS: BASOPHILS % 2.4 % (0.0-2.0); EOSINOPHILS % 0.7 % (0.0-5.0); HEMATOCRIT. 29.8 % (36.0-48.0); HEMOGLOBIN. 10.4 g/dL (12.0-16.0); LYMPHOCYTES % 33.9 % (20.0-50.0); MEAN CORPUSCULAR HEMOGLOBIN 32.3 pg (28.0-32.0); MEAN CORPUSCULAR VOLUME 92.8 fL (81.0-99.0); MEAN PLATELET VOLUME 7.2 fl (7.4-10.4); MONOCYTES % 8.3 % (2.0-8.0); NEUTROPHILS % 54.7 % (40.0-76.0); PLATELET 345 x1000/uL (130-400); RED BLOOD CELL COUNT 3.22 mill/uL (4.2-5.4); RED CELL DISTRIBUTION WIDTH 13.9 % (11.6-14.6)
[2020-01-25 11:37] LABS: CLARITY URINE CLEAR (CLEAR); COLOR URINE YELLOW (YELLOW); KETONES URINE NEGATIVE (NEGATIVE); LEUKOCYTE ESTERASE URINE NEGATIVE (NEGATIVE); NITRITE URINE NEGATIVE (NEGATIVE); OCCULT BLOOD URINE NEGATIVE (NEGATIVE); PROTEIN URINE NEGATIVE (NEGATIVE); SPECIFIC GRAVITY URINE 1.009 (1.005-1.030); UROBILINOGEN URINE 0.2 E.U./dL (0.2-1.0)
[2020-01-25 12:00] VITALS: BP 135/87
[2020-01-25 16:00] VITALS: BP 150/96
[2020-01-25 20:00] VITALS: BP_SYST 110; BP_SYST 134; BP_SYST 148; BP_DIAS 72; BP_DIAS 85; BP_DIAS 90
[2020-01-25] MEDS: POLYETHYLENE GLYCOL 3350 (17GM) 1 DOSE PACK PO SCH ×2 (20:28→21:00)
[2020-01-25] MEDS: CEFTRIAXONE 1 G PREMIX 50 ML IV SCH (20:28)
[2020-01-26] VITALS: BP 120/70
[2020-01-26] MEDS: DIPHENHYDRAMINE 50MG/ML VIAL IV PRN ×4 (01:46→22:22)
[2020-01-26] MEDS: SODIUM CHLORIDE 0.9% 1,000 ML IV SCH ×2 (01:46→13:00)
[2020-01-26 04:00] VITALS: BP 96/63
[2020-01-26] MEDS: BLOOD SUGAR DIAGNOSTIC STRIP TEST SCH ×4 (06:18→21:00)
[2020-01-26] MEDS: HYDROCODONE/ACETAMINOPHEN 5/325MG TABLET PO PRN ×4 (06:19→22:43)
[2020-01-26 06:24] LABS: BASOPHILS % 2.4 % (0.0-2.0); EOSINOPHILS % 1.3 % (0.0-5.0); HEMATOCRIT. 32.2 % (36.0-48.0); HEMOGLOBIN. 11.5 g/dL (12.0-16.0); LYMPHOCYTES % 32.4 % (20.0-50.0); MEAN CORPUSCULAR HEMOGLOBIN 32.8 pg (28.0-32.0); MEAN CORPUSCULAR VOLUME 92.4 fL (81.0-99.0); MEAN PLATELET VOLUME 6.5 fl (7.4-10.4); MONOCYTES % 8.4 % (2.0-8.0); NEUTROPHILS % 55.5 % (40.0-76.0); PLATELET 406 x1000/uL (130-400); RED BLOOD CELL COUNT 3.49 mill/uL (4.2-5.4)
[2020-01-26] MEDS: INSULIN LISPRO 100 UNITS/ML SUBCUT SCH ×4 (06:41→21:39)
[2020-01-26 07:22] LABS: CHLORIDE 98 mEq/L (98-107)
[2020-01-26 08:00] VITALS: BP 106/68
[2020-01-26] MEDS: SULFAMETHOXAZOLE/TRIMETHOPRIM 800/160MG TABLET PO SCH ×2 (08:51→21:39)
[2020-01-26] MEDS: BISACODYL 5MG TABLET PO PRN (08:56)
[2020-01-26] MEDS: MIDODRINE HCL 2.5MG TABLET PO SCH ×3 (08:56→19:02)
[2020-01-26] MEDS: LAMOTRIGINE 100MG TABLET PO SCH ×2 (08:56→21:39)
[2020-01-26] MEDS: FLUDROCORTISONE ACETATE 0.1MG TABLET PO SCH (08:56)
[2020-01-26] MEDS: DOCUSATE SODIUM 100MG CAPSULE PO SCH ×2 (08:57→17:00)
[2020-01-26] MEDS: ENOXAPARIN 40MG/0.4ML SYR SUBCUT SCH (08:57)
[2020-01-26 12:00] VITALS: BP 140/94
[2020-01-26] MEDS: LIDOCAINE 5% PATCH TOP SCH (12:53)
[2020-01-26] MEDS: INSULIN GLARGINE UD 100 UNITS/ML SYR SUBCUT SCH ×2 (12:58→21:40)
[2020-01-26] MEDS: POTASSIUM CHLORIDE 20MEQ TABLET SR PO SCH (13:09)
[2020-01-26 16:00] VITALS: BP 155/85
[2020-01-26 20:00] VITALS: BP 145/89
[2020-01-26] MEDS: CEFTRIAXONE 1 G PREMIX 50 ML IV SCH (20:43)
[2020-01-27] VITALS: BP_SYST 112; BP_SYST 126; BP_DIAS 70; BP_DIAS 85
[2020-01-27] MEDS: SODIUM CHLORIDE 0.9% 1,000 ML IV SCH ×2 (00:52→08:59)
[2020-01-27 03:50] VITALS: BP 118/76
[2020-01-27] MEDS: DIPHENHYDRAMINE 50MG/ML VIAL IV PRN ×4 (03:53→20:32)
[2020-01-27] MEDS: HYDROCODONE/ACETAMINOPHEN 5/325MG TABLET PO PRN ×4 (03:55→21:44)
[2020-01-27] MEDS: INSULIN LISPRO 100 UNITS/ML SUBCUT SCH ×4 (06:05→21:49)
[2020-01-27] MEDS: BLOOD SUGAR DIAGNOSTIC STRIP TEST SCH ×4 (06:05→21:45)
[2020-01-27 07:34] LABS: BASOPHILS % 1.8 % (0.0-2.0); EOSINOPHILS % 1.3 % (0.0-5.0); HEMATOCRIT. 31.3 % (36.0-48.0); HEMOGLOBIN. 11.1 g/dL (12.0-16.0); LYMPHOCYTES % 35.7 % (20.0-50.0); MEAN CORPUSCULAR HEMOGLOBIN 32.9 pg (28.0-32.0); MEAN CORPUSCULAR VOLUME 92.5 fL (81.0-99.0); MEAN PLATELET VOLUME 6.6 fl (7.4-10.4); MONOCYTES % 7.5 % (2.0-8.0); NEUTROPHILS % 53.7 % (40.0-76.0); PLATELET 367 x1000/uL (130-400); RED BLOOD CELL COUNT 3.39 mill/uL (4.2-5.4)
[2020-01-27 07:59] LABS: CHLORIDE 96 mEq/L (98-107)
[2020-01-27 08:00] VITALS: BP_SYST 117; BP_SYST 119; BP_SYST 78; BP_DIAS 41; BP_DIAS 76; BP_DIAS 84
[2020-01-27] MEDS: SULFAMETHOXAZOLE/TRIMETHOPRIM 800/160MG TABLET PO SCH ×2 (09:00→21:43)
[2020-01-27] MEDS: LIDOCAINE 5% PATCH TOP SCH ×2 (09:00→09:02)
[2020-01-27] MEDS: MIDODRINE HCL 2.5MG TABLET PO SCH ×2 (09:00→12:20)
[2020-01-27] MEDS: LAMOTRIGINE 100MG TABLET PO SCH ×2 (09:00→21:42)
[2020-01-27] MEDS: FLUDROCORTISONE ACETATE 0.1MG TABLET PO SCH (09:00)
[2020-01-27] MEDS: POTASSIUM CHLORIDE 20MEQ TABLET SR PO SCH (09:00)
[2020-01-27] MEDS: DOCUSATE SODIUM 100MG CAPSULE PO SCH ×2 (09:00→17:00)
[2020-01-27] MEDS: ENOXAPARIN 40MG/0.4ML SYR SUBCUT SCH (09:03)
[2020-01-27] MEDS: MAGNESIUM GLUCONATE 500MG TABLET PO SCH (10:44)
[2020-01-27] MEDS: INSULIN GLARGINE UD 100 UNITS/ML SYR SUBCUT SCH ×2 (10:56→21:48)
[2020-01-27 12:00] VITALS: BP 95/51
[2020-01-27 16:00] VITALS: BP_SYST 125; BP_SYST 152; BP_SYST 93; BP_DIAS 106; BP_DIAS 52; BP_DIAS 95
[2020-01-27] MEDS: MIDODRINE HCL 5MG TABLET PO SCH (18:37)
[2020-01-27 20:00] VITALS: BP 132/73
[2020-01-27] MEDS: POLYETHYLENE GLYCOL 3350 (17GM) 1 DOSE PACK PO SCH (21:00)
[2020-01-28] VITALS: BP_SYST 107; BP_SYST 121; BP_SYST 94; BP_DIAS 28; BP_DIAS 66; BP_DIAS 80
[2020-01-28] MEDS: DIPHENHYDRAMINE 50MG/ML VIAL IV PRN (03:02)
[2020-01-28] MEDS: HYDROCODONE/ACETAMINOPHEN 5/325MG TABLET PO PRN ×2 (03:53→09:22)
[2020-01-28 04:00] VITALS: BP 106/69
[2020-01-28] MEDS: BLOOD SUGAR DIAGNOSTIC STRIP TEST SCH ×3 (06:07→17:42)
[2020-01-28] MEDS: INSULIN LISPRO 100 UNITS/ML SUBCUT SCH ×3 (06:34→17:59)
[2020-01-28 07:29] LABS: BASOPHILS % 2.2 % (0.0-2.0); EOSINOPHILS % 1.9 % (0.0-5.0); HEMATOCRIT. 31.6 % (36.0-48.0); HEMOGLOBIN. 11.1 g/dL (12.0-16.0); LYMPHOCYTES % 35.4 % (20.0-50.0); MEAN CORPUSCULAR HEMOGLOBIN 32.9 pg (28.0-32.0); MEAN CORPUSCULAR VOLUME 93.7 fL (81.0-99.0); MEAN PLATELET VOLUME 6.6 fl (7.4-10.4); MONOCYTES % 8.2 % (2.0-8.0); NEUTROPHILS % 52.3 % (40.0-76.0); PLATELET 366 x1000/uL (130-400); RED BLOOD CELL COUNT 3.38 mill/uL (4.2-5.4)
[2020-01-28 07:34] LABS: CHLORIDE 98 mEq/L (98-107)
[2020-01-28 08:00] VITALS: BP 129/81
[2020-01-28] MEDS: MIDODRINE HCL 5MG TABLET PO SCH ×3 (09:00→17:22)
[2020-01-28] MEDS: LIDOCAINE 5% PATCH TOP SCH (09:00)
[2020-01-28] MEDS: DOCUSATE SODIUM 100MG CAPSULE PO SCH ×2 (09:07→17:21)
[2020-01-28] MEDS: MAGNESIUM GLUCONATE 500MG TABLET PO SCH (09:07)
[2020-01-28] MEDS: POTASSIUM CHLORIDE 20MEQ TABLET SR PO SCH (09:13)
[2020-01-28] MEDS: ENOXAPARIN 40MG/0.4ML SYR SUBCUT SCH (09:13)
[2020-01-28] MEDS: FLUDROCORTISONE ACETATE 0.1MG TABLET PO SCH (09:13)
[2020-01-28] MEDS: LAMOTRIGINE 100MG TABLET PO SCH (09:13)
[2020-01-28] MEDS: SULFAMETHOXAZOLE/TRIMETHOPRIM 800/160MG TABLET PO SCH (09:13)
[2020-01-28] MEDS: INSULIN GLARGINE UD 100 UNITS/ML SYR SUBCUT SCH (10:24)
[2020-01-28 12:00] VITALS: BP_SYST 124; BP_SYST 128; BP_SYST 70; BP_DIAS 40; BP_DIAS 79; BP_DIAS 80
[2020-01-28 14:08] VITALS: BP 124/80
[2020-01-28 16:00] VITALS: BP 141/90
[2020-01-28] MEDS ORDERED: FLUDROCORTISONE ACETATE 0.1MG TABLET PO SCH (17:00)
== END 2020-01-28 18:30 | disposition home health service (06) | DRG 420 ==
LOC: 5WST 17:14
PROVIDERS: ADMIT Internal Medicine; ATTEND Internal Medicine
DX: E10.10 Type 1 diabetes mellitus with ketoacidosis without coma (principal); G92 Toxic encephalopathy; E46 Unspecified protein-calorie malnutrition; I95.9 Hypotension, unspecified; E10.42 Type 1 diabetes mellitus with diabetic polyneuropathy; E83.42 Hypomagnesemia; R13.11 Dysphagia, oral phase; K76.0 Fatty (change of) liver, not elsewhere classified; G40.909 Epilepsy, unspecified, not intractable, without status epilepticus; E87.1 Hypo-osmolality and hyponatremia; D64.9 Anemia, unspecified; N39.0 Urinary tract infection, site not specified; I95.1 Orthostatic hypotension; I10 Essential (primary) hypertension; E87.6 Hypokalemia; F41.9 Anxiety disorder, unspecified; K59.00 Constipation, unspecified; N83.201 Unspecified ovarian cyst, right side; R59.0 Localized enlarged lymph nodes; M54.9 Dorsalgia, unspecified; R33.8 Other retention of urine; R26.9 Unspecified abnormalities of gait and mobility; Z79.4 Long term (current) use of insulin; Z91.81 History of falling; Z68.26 Body mass index [BMI] 26.0-26.9, adult
CPT/HCPCS: 36415; 80048; 81003; 82962; 83036; 83735; 85025; 85027; 92610; 93005; 97162; 97166; 97530; 97535; J0696; J1200; J1650; J1815; J7030

== ENCOUNTER 2020-02-01 06:48 | Inpatient (IN) | payer MEDICAID ==
[~2020-02-01] VITALS: Ht 167.6 cm; Wt 66.5 kg
[2020-02-01] MEDS ORDERED: SODIUM CHLORIDE 0.9% 1,000 ML IV ONE (07:23)
[2020-02-01 07:37] LABS: BASOPHILS % 1.7 % (0.0-2.0); EOSINOPHILS % 1.3 % (0.0-5.0); HEMATOCRIT. 37.2 % (36.0-48.0); HEMOGLOBIN. 12.7 g/dL (12.0-16.0); LYMPHOCYTES % 28.8 % (20.0-50.0); MEAN CORPUSCULAR VOLUME 96.5 fL (81.0-99.0); MEAN PLATELET VOLUME 6.4 fl (7.4-10.4); MONOCYTES % 6.9 % (2.0-8.0); NEUTROPHILS % 61.3 % (40.0-76.0); PLATELET 329 x1000/uL (130-400); RED BLOOD CELL COUNT 3.86 mill/uL (4.2-5.4); RED CELL DISTRIBUTION WIDTH 14.4 % (11.6-14.6)
[2020-02-01 07:43] LABS: CHLORIDE 102 mEq/L (98-107)
[2020-02-01 07:47] LABS: ETHANOL BLOOD < 10 mg/dL
[2020-02-01 07:55] LABS: HCG SCREEN NEGATIVE
[2020-02-01 08:27] LABS: CLARITY URINE CLEAR (CLEAR); COLOR URINE YELLOW (YELLOW); KETONES URINE 1+ (NEGATIVE); LEUKOCYTE ESTERASE URINE NEGATIVE (NEGATIVE); NITRITE URINE NEGATIVE (NEGATIVE); OCCULT BLOOD URINE NEGATIVE (NEGATIVE); PROTEIN URINE TRACE (NEGATIVE); SPECIFIC GRAVITY URINE 1.041 (1.005-1.030); UROBILINOGEN URINE 0.2 E.U./dL (0.2-1.0)
[2020-02-01 09:01] LABS: *BARBITURATES SCREEN URINE NEGATIVE (NEGATIVE); *BENZODIAZEPINES SCREEN URINE NEGATIVE (NEGATIVE); *COCAINE SCREEN URINE NEGATIVE (NEGATIVE); METHADONE URINE SCREEN NEGATIVE (NEGATIVE); OPIATES URINE SCREEN NEGATIVE (NEGATIVE)
[2020-02-01 09:02] LABS: *AMPHETAMINES SCREEN URINE NEGATIVE (NEGATIVE); CANNABINOID URINE SCREEN NEGATIVE (NEGATIVE); PHENCYCLIDINE URINE SCREEN NEGATIVE (NEGATIVE)
[2020-02-01] MEDS ORDERED: KETOROLAC 15MG/ML VIAL IV ONE (09:45)
[2020-02-01] MEDS ORDERED: IOHEXOL-300 100 ML BOTTLE ONE (10:41)
[2020-02-01] MEDS ORDERED: MORPHINE SULFATE 2 MG/ML CPJ (NOT FOR IM USE) IV ONE (14:30)
[2020-02-01] MEDS ORDERED: ONDANSETRON HCL 4MG/2ML INJ IV PRN ×2 (14:30→14:53)
[2020-02-01] MEDS ORDERED: DEXTROSE 50% WATER 50ML SYRINGE IV PRN (14:30)
[2020-02-01] MEDS ORDERED: ACETAMINOPHEN 325MG TABLET PO PRN (14:30)
[2020-02-01] MEDS: BLOOD SUGAR DIAGNOSTIC STRIP TEST SCH ×2 (14:50→21:06)
[2020-02-01] MEDS: SORBITOL 70% SOLN 30ML PO NR (14:52)
[2020-02-01] MEDS: DOCUSATE SODIUM 250MG CAPSULE PO SCH (17:30)
[2020-02-01] MEDS: INSULIN LISPRO 100 UNITS/ML SUBCUT SCH ×2 (18:16→21:27)
[2020-02-01 20:00] VITALS: BP 113/74
[2020-02-01 20:42] VITALS: BP_SYST 113; BP_SYST 78; BP_DIAS 33; BP_DIAS 74
[2020-02-01] MEDS ORDERED: AMLODIPINE 5MG TABLET PO SCH (21:00)
[2020-02-01] MEDS: BISACODYL 10MG SUPP PR PRN (21:06)
[2020-02-01] MEDS ORDERED: INSULIN GLARGINE UD 100 UNITS/ML SYR SUBCUT SCH (22:00)
[2020-02-01] MEDS: KETOROLAC 30MG/ML VIAL IV PRN (22:29)
[2020-02-02] MEDS: DIPHENHYDRAMINE 50MG/ML VIAL IV PRN ×3 (00:28→23:20)
[2020-02-02 00:30] VITALS: BP 115/80
[2020-02-02 04:00] VITALS: BP 129/92
[2020-02-02] MEDS: MORPHINE SULFATE 2 MG/ML CPJ (NOT FOR IM USE) IV PRN ×3 (04:07→21:21)
[2020-02-02] MEDS: BLOOD SUGAR DIAGNOSTIC STRIP TEST SCH ×4 (06:39→21:21)
[2020-02-02 06:41] LABS: BASOPHILS % 0.5 % (0.0-2.0); EOSINOPHILS % 1.2 % (0.0-5.0); HEMATOCRIT. 33.9 % (36.0-48.0); HEMOGLOBIN. 11.8 g/dL (12.0-16.0); LYMPHOCYTES % 30.1 % (20.0-50.0); MEAN CORPUSCULAR VOLUME 94.9 fL (81.0-99.0); MEAN PLATELET VOLUME 6.8 fl (7.4-10.4); NEUTROPHILS % 62.2 % (40.0-76.0); PLATELET 316 x1000/uL (130-400); RED BLOOD CELL COUNT 3.57 mill/uL (4.2-5.4); RED CELL DISTRIBUTION WIDTH 14.1 % (11.6-14.6)
[2020-02-02 06:52] LABS: CHLORIDE 101 mEq/L (98-107)
[2020-02-02 08:07] VITALS: BP_SYST 142; BP_SYST 74; BP_SYST 94; BP_DIAS 32; BP_DIAS 58; BP_DIAS 86
[2020-02-02] MEDS: DOCUSATE SODIUM 250MG CAPSULE PO SCH (09:31)
[2020-02-02] MEDS: INSULIN LISPRO 100 UNITS/ML SUBCUT SCH ×4 (09:31→21:00)
[2020-02-02] MEDS: FLUDROCORTISONE ACETATE 0.1MG TABLET PO SCH (09:32)
[2020-02-02] MEDS: INSULIN GLARGINE UD 100 UNITS/ML SYR SUBCUT SCH ×2 (11:01→21:38)
[2020-02-02] MEDS: SORBITOL 70% SOLN 30ML PO NR (11:39)
[2020-02-02 12:00] VITALS: BP 91/49
[2020-02-02] MEDS: MIDODRINE HCL 5MG TABLET PO SCH ×2 (14:12→16:45)
[2020-02-02 16:30] VITALS: BP 160/106
[2020-02-02 20:00] VITALS: BP 136/97
[2020-02-03] VITALS (7 sets, daily range): BP systolic 76–133; BP diastolic 34–88
[2020-02-03] MEDS: KETOROLAC 30MG/ML VIAL IV PRN (00:25)
[2020-02-03] MEDS: MORPHINE SULFATE 2 MG/ML CPJ (NOT FOR IM USE) IV PRN ×2 (04:22→09:04)
[2020-02-03] MEDS: BLOOD SUGAR DIAGNOSTIC STRIP TEST SCH ×4 (07:34→21:40)
[2020-02-03] MEDS: INSULIN LISPRO 100 UNITS/ML SUBCUT SCH ×4 (07:50→21:48)
[2020-02-03] MEDS: MIDODRINE HCL 5MG TABLET PO SCH (09:00)
[2020-02-03] MEDS: DOCUSATE SODIUM 250MG CAPSULE PO SCH (09:05)
[2020-02-03] MEDS: FLUDROCORTISONE ACETATE 0.1MG TABLET PO SCH (09:05)
[2020-02-03] MEDS: DIPHENHYDRAMINE 50MG/ML VIAL IV PRN ×2 (11:29→19:49)
[2020-02-03] MEDS: GABAPENTIN 300MG CAPSULE PO SCH ×2 (15:54→21:49)
[2020-02-03] MEDS ORDERED: SORBITOL 70% SOLN 30ML PO NR (18:45)
[2020-02-03] MEDS ORDERED: BISACODYL 10MG SUPP PR NR (18:45)
[2020-02-03] MEDS: INSULIN GLARGINE UD 100 UNITS/ML SYR SUBCUT SCH (21:48)
[2020-02-04] VITALS: BP 113/79
[2020-02-04 04:00] VITALS: BP 151/103
[2020-02-04] MEDS: MORPHINE SULFATE 2 MG/ML CPJ (NOT FOR IM USE) IV PRN (04:06)
[2020-02-04] MEDS: BLOOD SUGAR DIAGNOSTIC STRIP TEST SCH ×4 (06:22→20:38)
[2020-02-04] MEDS: GABAPENTIN 300MG CAPSULE PO SCH ×3 (06:22→20:38)
[2020-02-04 08:00] VITALS: BP 136/86
[2020-02-04] MEDS: DOCUSATE SODIUM 250MG CAPSULE PO SCH (08:55)
[2020-02-04] MEDS: FLUDROCORTISONE ACETATE 0.1MG TABLET PO SCH ×2 (08:55→18:22)
[2020-02-04] MEDS: MIDODRINE HCL 2.5MG TABLET PO SCH ×2 (08:56→13:21)
[2020-02-04] MEDS: INSULIN LISPRO 100 UNITS/ML SUBCUT SCH ×4 (08:57→20:38)
[2020-02-04] MEDS: KETOROLAC 30MG/ML VIAL IV PRN ×2 (11:05→20:39)
[2020-02-04] MEDS: INSULIN GLARGINE UD 100 UNITS/ML SYR SUBCUT SCH ×2 (11:06→22:31)
[2020-02-04] MEDS ORDERED: MIDO2.5T MT (11:24)
[2020-02-04] MEDS ORDERED: FLOR MT (11:24)
[2020-02-04] MEDS ORDERED: GABA-290 MT (11:24)
[2020-02-04] MEDS ORDERED: DOCU250C14 MT (11:24)
[2020-02-04 12:00] VITALS: BP_SYST 127; BP_SYST 133; BP_SYST 75; BP_DIAS 35; BP_DIAS 83; BP_DIAS 93
[2020-02-04] MEDS ORDERED: NA PHOS,M-B/NA PHOS,DI-BA ENEMA 118ML PR SCH (12:30)
[2020-02-04] MEDS ORDERED: SODIUM CHLORIDE 0.9% 500 ML IV ONE (14:45)
[2020-02-04 16:00] VITALS: BP_SYST 133; BP_SYST 97; BP_DIAS 43; BP_DIAS 56
[2020-02-04 16:26] LABS: BASOPHILS % 1.9 % (0.0-2.0); EOSINOPHILS % 2.7 % (0.0-5.0); HEMATOCRIT. 33.4 % (36.0-48.0); HEMOGLOBIN. 11.8 g/dL (12.0-16.0); LYMPHOCYTES % 40.1 % (20.0-50.0); MEAN CORPUSCULAR HEMOGLOBIN 33.2 pg (28.0-32.0); MEAN CORPUSCULAR VOLUME 94.1 fL (81.0-99.0); MEAN PLATELET VOLUME 6.9 fl (7.4-10.4); MONOCYTES % 7.3 % (2.0-8.0); PLATELET 336 x1000/uL (130-400); RED BLOOD CELL COUNT 3.55 mill/uL (4.2-5.4); RED CELL DISTRIBUTION WIDTH 13.7 % (11.6-14.6)
[2020-02-04] MEDS ORDERED: KETOROLAC 10MG TABLET PO PRN (16:30)
[2020-02-04 16:39] LABS: CHLORIDE 97 mEq/L (98-107)
[2020-02-04 20:00] VITALS: BP_SYST 137; BP_SYST 155; BP_DIAS 103; BP_DIAS 94
[2020-02-04] MEDS: MIDODRINE HCL 5MG TABLET PO SCH (20:37)
[2020-02-04] MEDS: TRAMADOL 50MG TABLET PO PRN (23:05)
[2020-02-04] MEDS ORDERED: DIPHENHYDRAMINE 50MG CAPSULE PO PRN (23:30)
[2020-02-04] MEDS: DIPHENHYDRAMINE 50MG/ML VIAL IV PRN (23:35)
[2020-02-05 01:36] VITALS: BP_SYST 109; BP_SYST 81; BP_DIAS 44; BP_DIAS 98
[2020-02-05] MEDS: KETOROLAC 30MG/ML VIAL IV PRN ×3 (03:13→17:08)
[2020-02-05] MEDS: GABAPENTIN 300MG CAPSULE PO SCH ×3 (06:02→20:10)
[2020-02-05] MEDS: MIDODRINE HCL 5MG TABLET PO SCH (06:03)
[2020-02-05 06:19] LABS: CHLORIDE 99 mEq/L (98-107)
[2020-02-05] MEDS: BLOOD SUGAR DIAGNOSTIC STRIP TEST SCH ×4 (06:33→20:11)
[2020-02-05 06:39] LABS: BASOPHILS % 1.5 % (0.0-2.0); EOSINOPHILS % 2.5 % (0.0-5.0); HEMOGLOBIN. 11.3 g/dL (12.0-16.0); LYMPHOCYTES % 38.6 % (20.0-50.0); MEAN CORPUSCULAR HEMOGLOBIN 32.9 pg (28.0-32.0); MEAN CORPUSCULAR VOLUME 93.1 fL (81.0-99.0); MEAN PLATELET VOLUME 6.8 fl (7.4-10.4); MONOCYTES % 7.3 % (2.0-8.0); NEUTROPHILS % 50.1 % (40.0-76.0); PLATELET 316 x1000/uL (130-400); RED BLOOD CELL COUNT 3.43 mill/uL (4.2-5.4); RED CELL DISTRIBUTION WIDTH 13.6 % (11.6-14.6)
[2020-02-05] MEDS: INSULIN LISPRO 100 UNITS/ML SUBCUT SCH ×4 (07:38→20:46)
[2020-02-05 08:00] VITALS: BP 118/74
[2020-02-05] MEDS: DOCUSATE SODIUM 250MG CAPSULE PO SCH ×2 (09:00→09:15)
[2020-02-05] MEDS: TRAMADOL 50MG TABLET PO PRN ×2 (09:16→20:42)
[2020-02-05] MEDS: FLUDROCORTISONE ACETATE 0.1MG TABLET PO SCH ×2 (09:16→17:06)
[2020-02-05] MEDS: DIPHENHYDRAMINE 50MG/ML VIAL IV PRN (10:22)
[2020-02-05] MEDS: INSULIN GLARGINE UD 100 UNITS/ML SYR SUBCUT SCH ×2 (10:25→20:48)
[2020-02-05 11:54] VITALS: BP_SYST 140; BP_SYST 160; BP_SYST 77; BP_DIAS 105; BP_DIAS 113; BP_DIAS 36
[2020-02-05] MEDS: MIDODRINE HCL 2.5MG TABLET PO SCH ×2 (15:20→20:10)
[2020-02-05 16:00] VITALS: BP 117/77
[2020-02-05 20:00] VITALS: BP_SYST 125; BP_SYST 64; BP_SYST 89; BP_DIAS 35; BP_DIAS 51; BP_DIAS 86
[2020-02-05] MEDS: DIPHENHYDRAMINE 50MG CAPSULE PO PRN (20:42)
[2020-02-06] VITALS: BP 120/40
[2020-02-06] MEDS: DIPHENHYDRAMINE 50MG CAPSULE PO PRN ×3 (02:29→22:06)
[2020-02-06] MEDS: KETOROLAC 30MG/ML VIAL IV PRN (02:29)
[2020-02-06 04:00] VITALS: BP 121/84
[2020-02-06] MEDS: GABAPENTIN 300MG CAPSULE PO SCH ×3 (04:54→21:53)
[2020-02-06] MEDS: BLOOD SUGAR DIAGNOSTIC STRIP TEST SCH ×4 (04:54→21:00)
[2020-02-06] MEDS: MIDODRINE HCL 2.5MG TABLET PO SCH ×3 (04:54→21:53)
[2020-02-06] MEDS: INSULIN LISPRO 100 UNITS/ML SUBCUT SCH ×4 (05:14→22:27)
[2020-02-06 08:07] VITALS: BP_SYST 116; BP_SYST 123; BP_SYST 69; BP_DIAS 35; BP_DIAS 80; BP_DIAS 85
[2020-02-06] MEDS: FLUDROCORTISONE ACETATE 0.1MG TABLET PO SCH ×2 (08:37→17:11)
[2020-02-06] MEDS: INSULIN GLARGINE UD 100 UNITS/ML SYR SUBCUT SCH (09:37)
[2020-02-06] MEDS: TRAMADOL 50MG TABLET PO PRN ×2 (09:49→20:42)
[2020-02-06 11:51] VITALS: BP 161/111
[2020-02-06] MEDS ORDERED: ALPRAZOLAM 0.25 MG TABLET PO NR (12:15)
[2020-02-06] MEDS: SODIUM CHLORIDE 0.9% 1,000 ML IV SCH ×2 (13:11→21:54)
[2020-02-06 16:00] VITALS: BP 137/97
[2020-02-06] MEDS ORDERED: SODIUM CHLORIDE 0.9% 1,000 ML IV ONE (18:30)
[2020-02-06 20:00] VITALS: BP_SYST 130; BP_SYST 148; BP_SYST 78; BP_DIAS 40; BP_DIAS 98
[2020-02-06] MEDS: AMLODIPINE 2.5MG TABLET PO SCH (20:41)
[2020-02-06] MEDS: ALPRAZOLAM 0.25 MG TABLET PO PRN (20:43)
[2020-02-07] VITALS: BP 97/63
[2020-02-07] MEDS: MORPHINE SULFATE 2 MG/ML CPJ (NOT FOR IM USE) IV PRN ×3 (01:22→20:28)
[2020-02-07 04:00] VITALS: BP 153/94
[2020-02-07] MEDS: MIDODRINE HCL 2.5MG TABLET PO SCH ×3 (06:27→22:25)
[2020-02-07] MEDS: GABAPENTIN 300MG CAPSULE PO SCH ×3 (06:27→22:24)
[2020-02-07 06:53] LABS: CHLORIDE 104 mEq/L (98-107)
[2020-02-07] MEDS: BLOOD SUGAR DIAGNOSTIC STRIP TEST SCH ×4 (07:48→21:54)
[2020-02-07 07:54] LABS: BASOPHILS % 2.2 % (0.0-2.0); EOSINOPHILS % 3.1 % (0.0-5.0); HEMATOCRIT. 32.9 % (36.0-48.0); HEMOGLOBIN. 11.7 g/dL (12.0-16.0); LYMPHOCYTES % 36.4 % (20.0-50.0); MEAN PLATELET VOLUME 7.1 fl (7.4-10.4); MONOCYTES % 7.3 % (2.0-8.0); PLATELET 347 x1000/uL (130-400); RED BLOOD CELL COUNT 3.54 mill/uL (4.2-5.4); RED CELL DISTRIBUTION WIDTH 13.9 % (11.6-14.6)
[2020-02-07 08:00] VITALS: BP_SYST 133; BP_SYST 74; BP_SYST 80; BP_DIAS 44; BP_DIAS 90
[2020-02-07] MEDS: INSULIN LISPRO 100 UNITS/ML SUBCUT SCH ×4 (08:45→22:23)
[2020-02-07] MEDS: DOCUSATE SODIUM 250MG CAPSULE PO SCH (08:47)
[2020-02-07] MEDS: FLUDROCORTISONE ACETATE 0.1MG TABLET PO SCH ×2 (08:47→09:00)
[2020-02-07] MEDS: AMLODIPINE 2.5MG TABLET PO SCH (09:00)
[2020-02-07] MEDS: DIPHENHYDRAMINE 50MG CAPSULE PO PRN ×2 (10:04→20:27)
[2020-02-07] MEDS: SODIUM CHLORIDE 0.9% 1,000 ML IV SCH (10:06)
[2020-02-07 12:00] VITALS: BP_SYST 148; BP_SYST 150; BP_SYST 77; BP_DIAS 104; BP_DIAS 106; BP_DIAS 39
[2020-02-07] MEDS ORDERED: MAGNESIUM 2 G PREMIX 50 ML IV NR (14:00)
[2020-02-07 16:00] VITALS: BP_SYST 109; BP_SYST 132; BP_SYST 64; BP_DIAS 21; BP_DIAS 68; BP_DIAS 91
[2020-02-07 20:00] VITALS: BP_SYST 114; BP_SYST 130; BP_SYST 78; BP_DIAS 42; BP_DIAS 68; BP_DIAS 93
[2020-02-08] VITALS (8 sets, daily range): BP systolic 54–171; BP diastolic 23–123
[2020-02-08] MEDS: MORPHINE SULFATE 2 MG/ML CPJ (NOT FOR IM USE) IV PRN ×4 (00:43→20:06)
[2020-02-08] MEDS: SODIUM CHLORIDE 0.9% 1,000 ML IV SCH ×3 (00:53→17:27)
[2020-02-08] MEDS: ALPRAZOLAM 0.25 MG TABLET PO PRN (01:46)
[2020-02-08] MEDS: DIPHENHYDRAMINE 50MG CAPSULE PO PRN (05:10)
[2020-02-08] MEDS: GABAPENTIN 300MG CAPSULE PO SCH ×3 (05:56→21:02)
[2020-02-08] MEDS: MIDODRINE HCL 2.5MG TABLET PO SCH ×3 (05:56→21:06)
[2020-02-08 06:28] LABS: CHLORIDE 103 mEq/L (98-107)
[2020-02-08] MEDS: BLOOD SUGAR DIAGNOSTIC STRIP TEST SCH ×4 (07:20→20:54)
[2020-02-08] MEDS: DOCUSATE SODIUM 250MG CAPSULE PO SCH (09:00)
[2020-02-08] MEDS: INSULIN LISPRO 100 UNITS/ML SUBCUT SCH ×4 (09:32→21:07)
[2020-02-08] MEDS: INSULIN GLARGINE UD 100 UNITS/ML SYR SUBCUT SCH ×2 (10:55→21:51)
[2020-02-08] MEDS: FLUDROCORTISONE ACETATE 0.1MG TABLET PO SCH (10:55)
[2020-02-09] VITALS: BP_SYST 133; BP_SYST 160; BP_SYST 97; BP_DIAS 102; BP_DIAS 38; BP_DIAS 91
[2020-02-09] MEDS: MORPHINE SULFATE 2 MG/ML CPJ (NOT FOR IM USE) IV PRN ×5 (00:30→19:47)
[2020-02-09 04:00] VITALS: BP_SYST 121; BP_SYST 162; BP_SYST 97; BP_DIAS 106; BP_DIAS 59; BP_DIAS 75
[2020-02-09] MEDS: SODIUM CHLORIDE 0.9% 1,000 ML IV SCH ×2 (04:47→11:49)
[2020-02-09] MEDS: GABAPENTIN 300MG CAPSULE PO SCH ×2 (05:37→13:23)
[2020-02-09] MEDS: MIDODRINE HCL 2.5MG TABLET PO SCH ×2 (05:37→13:22)
[2020-02-09] MEDS: BLOOD SUGAR DIAGNOSTIC STRIP TEST SCH ×4 (07:20→21:00)
[2020-02-09 08:00] VITALS: BP_SYST 114; BP_SYST 91; BP_DIAS 50; BP_DIAS 73
[2020-02-09] MEDS: INSULIN LISPRO 100 UNITS/ML SUBCUT SCH ×4 (09:20→21:00)
[2020-02-09] MEDS: INSULIN GLARGINE UD 100 UNITS/ML SYR SUBCUT SCH (09:21)
[2020-02-09] MEDS: FLUDROCORTISONE ACETATE 0.1MG TABLET PO SCH (09:23)
[2020-02-09] MEDS: DOCUSATE SODIUM 250MG CAPSULE PO SCH (09:23)
[2020-02-09] MEDS ORDERED: FLOR PO (10:56)
[2020-02-09] MEDS ORDERED: MIDO2.5T PO (10:56)
[2020-02-09 12:00] VITALS: BP_SYST 114; BP_SYST 128; BP_DIAS 70; BP_DIAS 83
[2020-02-09 16:37] LABS: BASOPHILS % 1.9 % (0.0-2.0); CHLORIDE 100 mEq/L (98-107); EOSINOPHILS % 1.7 % (0.0-5.0); HEMATOCRIT. 31.6 % (36.0-48.0); HEMOGLOBIN. 11.3 g/dL (12.0-16.0); LYMPHOCYTES % 32.9 % (20.0-50.0); MEAN CORPUSCULAR HEMOGLOBIN 33.2 pg (28.0-32.0); MEAN CORPUSCULAR VOLUME 93.3 fL (81.0-99.0); MEAN PLATELET VOLUME 6.9 fl (7.4-10.4); MONOCYTES % 7.9 % (2.0-8.0); NEUTROPHILS % 55.6 % (40.0-76.0); PLATELET 364 x1000/uL (130-400); RED BLOOD CELL COUNT 3.39 mill/uL (4.2-5.4); RED CELL DISTRIBUTION WIDTH 13.5 % (11.6-14.6)
[2020-02-09 20:00] VITALS: BP_SYST 120; BP_SYST 96; BP_DIAS 60; BP_DIAS 82
[2020-02-10] MEDS: INSULIN GLARGINE UD 100 UNITS/ML SYR SUBCUT SCH ×3 (00:01→22:37)
[2020-02-10] MEDS: GABAPENTIN 300MG CAPSULE PO SCH ×4 (00:02→22:32)
[2020-02-10] MEDS: MIDODRINE HCL 2.5MG TABLET PO SCH ×2 (00:02→06:58)
[2020-02-10] MEDS: MORPHINE SULFATE 2 MG/ML CPJ (NOT FOR IM USE) IV PRN ×6 (00:02→22:52)
[2020-02-10] MEDS: BISACODYL 10MG SUPP PR PRN ×2 (00:06→07:12)
[2020-02-10 00:07] VITALS: BP 118/85
[2020-02-10 04:00] VITALS: BP_SYST 132; BP_SYST 96; BP_DIAS 55; BP_DIAS 86
[2020-02-10] MEDS: SODIUM CHLORIDE 0.9% 1,000 ML IV SCH ×2 (04:12→07:08)
[2020-02-10] MEDS: INSULIN LISPRO 100 UNITS/ML SUBCUT SCH ×4 (07:07→21:00)
[2020-02-10] MEDS: BLOOD SUGAR DIAGNOSTIC STRIP TEST SCH ×4 (07:08→21:00)
[2020-02-10 08:00] VITALS: BP 144/90
[2020-02-10] MEDS: DOCUSATE SODIUM 250MG CAPSULE PO SCH (10:04)
[2020-02-10] MEDS: FLUDROCORTISONE ACETATE 0.1MG TABLET PO SCH (10:04)
[2020-02-10 12:02] VITALS: BP 133/86
[2020-02-10] MEDS: MIDODRINE HCL 5MG TABLET PO SCH ×2 (14:52→22:32)
[2020-02-10 20:00] VITALS: BP_SYST 138; BP_SYST 140; BP_DIAS 94; BP_DIAS 95
[2020-02-11] VITALS (7 sets, daily range): BP systolic 85–162; BP diastolic 44–107
[2020-02-11] MEDS: MORPHINE SULFATE 2 MG/ML CPJ (NOT FOR IM USE) IV PRN (03:07)
[2020-02-11] MEDS: GABAPENTIN 300MG CAPSULE PO SCH ×2 (06:31→13:32)
[2020-02-11] MEDS: MIDODRINE HCL 5MG TABLET PO SCH ×2 (06:31→13:37)
[2020-02-11] MEDS: BLOOD SUGAR DIAGNOSTIC STRIP TEST SCH ×2 (06:36→12:20)
[2020-02-11 07:20] LABS: BASOPHILS % 1.6 % (0.0-2.0); EOSINOPHILS % 1.9 % (0.0-5.0); HEMATOCRIT. 31.7 % (36.0-48.0); HEMOGLOBIN. 11.4 g/dL (12.0-16.0); LYMPHOCYTES % 37.3 % (20.0-50.0); MEAN CORPUSCULAR HEMOGLOBIN 33.1 pg (28.0-32.0); MEAN CORPUSCULAR VOLUME 92.5 fL (81.0-99.0); MEAN PLATELET VOLUME 7.2 fl (7.4-10.4); MONOCYTES % 7.9 % (2.0-8.0); NEUTROPHILS % 51.3 % (40.0-76.0); PLATELET 379 x1000/uL (130-400); RED BLOOD CELL COUNT 3.43 mill/uL (4.2-5.4); RED CELL DISTRIBUTION WIDTH 13.4 % (11.6-14.6)
[2020-02-11 07:45] LABS: CHLORIDE 105 mEq/L (98-107)
[2020-02-11] MEDS: INSULIN LISPRO 100 UNITS/ML SUBCUT SCH ×2 (07:50→13:33)
[2020-02-11] MEDS ORDERED: POTASSIUM CHLORIDE 20MEQ TABLET SR PO SCH (09:00)
[2020-02-11] MEDS ORDERED: MAGNESIUM GLUCONATE 500MG TABLET PO SCH (09:00)
[2020-02-11] MEDS: DOCUSATE SODIUM 250MG CAPSULE PO SCH (10:07)
[2020-02-11] MEDS: FLUDROCORTISONE ACETATE 0.1MG TABLET PO SCH (10:07)
[2020-02-11] MEDS: BISACODYL 10MG SUPP PR PRN (10:08)
[2020-02-11] MEDS: INSULIN GLARGINE UD 100 UNITS/ML SYR SUBCUT SCH (10:52)
[2020-02-11] MEDS ORDERED: MIDODRINE HCL 5MG TABLET PO NR (11:00)
[2020-02-11] MEDS ORDERED: MIDO10TA MT (14:28)
== END 2020-02-11 16:15 | disposition home or self-care (01) | DRG 48 ==
LOC: ER 06:48 → ENRESERV 19:16 → 6WST 19:55
PROVIDERS: ADMIT Internal Medicine; ATTEND Internal Medicine
DX: G90.8 Other disorders of autonomic nervous system (principal); E10.65 Type 1 diabetes mellitus with hyperglycemia; G62.9 Polyneuropathy, unspecified; E10.42 Type 1 diabetes mellitus with diabetic polyneuropathy; K76.0 Fatty (change of) liver, not elsewhere classified; I95.1 Orthostatic hypotension; K56.41 Fecal impaction; I10 Essential (primary) hypertension; K56.7 Ileus, unspecified; D64.9 Anemia, unspecified; E10.43 Type 1 diabetes mellitus with diabetic autonomic (poly)neuropathy; E83.42 Hypomagnesemia; Z20.828 Contact with and (suspected) exposure to other viral communicable diseases; E87.6 Hypokalemia; Z79.4 Long term (current) use of insulin; Z82.49 Family history of ischemic heart disease and other diseases of the circulatory system; Z90.49 Acquired absence of other specified parts of digestive tract; Z90.89 Acquired absence of other organs; Z91.81 History of falling; Z79.899 Other long term (current) drug therapy
CPT/HCPCS: 36415; 71045; 74177; 80048; 80053; 80305; 80320; 81003; 82088; 82962; 83605; 83735; 83880; 84100; 84244; 84484; 84703; 85025; 93005; 99285; J1200; J1815; J1885; J2270; J3475; J7030; Q0163; Q9967; G0480

== ENCOUNTER 2020-03-15 09:11 | Emergency (ER) | payer MEDICAID ==
[~2020-03-15] VITALS: Ht 167.6 cm; Wt 64.0 kg
[~2020-03-15 09:11] MED LIST changes: +DOCU250C14 MT; +FLOR PO; +GABA-290 MT; +MIDO10TA MT; +MIDO2.5T PO
[2020-03-15] MEDS ORDERED: SODIUM CHLORIDE 0.9% 1,000 ML IV ONE ×2 (09:38→09:39)
[2020-03-15] MEDS ORDERED: ONDANSETRON HCL 4MG/2ML INJ IV STA (09:39)
[2020-03-15] MEDS ORDERED: KETOROLAC 30MG/ML VIAL IV ONE (09:45)
[2020-03-15 10:19] LABS: CHLORIDE 98 mEq/L (98-107)
[2020-03-15 10:20] LABS: BASOPHILS % 1.9 % (0.0-2.0); EOSINOPHILS % 2.5 % (0.0-5.0); HEMOGLOBIN. 9.6 g/dL (12.0-16.0); LYMPHOCYTES % 46.4 % (20.0-50.0); MEAN CORPUSCULAR HEMOGLOBIN 32.5 pg (28.0-32.0); MEAN CORPUSCULAR VOLUME 91.3 fL (81.0-99.0); MONOCYTES % 7.9 % (2.0-8.0); NEUTROPHILS % 41.3 % (40.0-76.0); PLATELET 227 x1000/uL (130-400); RED BLOOD CELL COUNT 2.95 mill/uL (4.2-5.4); RED CELL DISTRIBUTION WIDTH 12.6 % (11.6-14.6)
[2020-03-15 10:28] LABS: BETA HYDROXYBUTYRATE 0.2 mMol/L (0.0-0.3)
[2020-03-15 10:30] LABS: BG BASE EXCESS 1.9 mmol/L (-2.0-2.0); BG CARBOXYHEMOGLOBIN 0.1 % (0.5-1.5); BG DEOXYHEMOGLOBIN 7.4 % (0.0-5.0); BG FRACTION INSPIRED OXYGEN 21; BG HCO3 ACT 27.1 mmol/L (22.0-26.0); BG METHEMOGLOBIN 0.1 % (0.0-1.5); BG OXYGEN SATURATION 92.6 % (92.0-98.5); BG OXYHEMOGLOBIN 92.4 % (94.0-97.0); BG PH 7.398 (7.350-7.450); BG PO2 67.6 mmHg (75.0-100.0); BG SAMPLE SITE RIGHT RADIAL; BG TOTAL HEMOGLOBIN 13.1 g/dL (12.0-18.0); BG VENT MODE ROOM AIR
[2020-03-15 10:49] LABS: HCG SCREEN NEGATIVE
[2020-03-15] MEDS ORDERED: MORPHINE SULFATE 4 MG/ML CPJ (NOT FOR IM USE) IV ONE (11:00)
[2020-03-15 13:00] VITALS: BP 149/100
== END 2020-03-15 13:20 | disposition home or self-care (01) ==
LOC: ER 09:11
DX: I95.1 Orthostatic hypotension (principal); E11.9 Type 2 diabetes mellitus without complications; Z03.818 Encounter for observation for suspected exposure to other biological agents ruled out; Z90.49 Acquired absence of other specified parts of digestive tract; Z79.4 Long term (current) use of insulin
CPT/HCPCS: 36415; 36600; 71045; 73502; 80053; 82010; 82375; 82805; 82962; 83690; 84484; 84703; 85025; 87635; 93005; 96361; 96374; 96375; 99285; C9803; J1885; J2270; J2405; J7030

== ENCOUNTER 2020-11-05 02:57 | Inpatient (IN) | payer MEDICAID ==
[2020-11-05] VITALS (19 sets, daily range): BP systolic 94–159; BP diastolic 41–83
[~2020-11-05] VITALS: Ht 170.2 cm; Wt 61.4 kg
[~2020-11-05 02:57] MED LIST changes: -DOCU250C14 MT; -FLOR PO; -GABA-290 MT; -INSLIS SUBCUT; +INSU100I24 SQ; +INSU100V34 SQ; -MIDO10TA MT; -MIDO2.5T PO
[2020-11-05] MEDS ORDERED: ONDANSETRON HCL 4MG/2ML INJ IV STA (03:27)
[2020-11-05] MEDS ORDERED: SODIUM CHLORIDE 0.9% 1,000 ML IV ONE ×2 (03:30→04:45)
[2020-11-05] MEDS ORDERED: MORPHINE SULFATE 4 MG/ML CPJ (NOT FOR IM USE) IV ONE (03:45)
[2020-11-05 04:00] LABS: HEMATOCRIT. 38.9 % (36.0-48.0); HEMOGLOBIN. 12.3 g/dL (12.0-16.0); MEAN CORPUSCULAR HEMOGLOBIN 31.7 pg (28.0-32.0); MEAN CORPUSCULAR VOLUME 100.7 fL (81.0-99.0); MEAN PLATELET VOLUME 9.2 fl (7.4-10.4); PLATELET 222 x1000/uL (130-400); RED BLOOD CELL COUNT 3.86 mill/uL (4.2-5.4); RED CELL DISTRIBUTION WIDTH 13.6 % (11.6-14.6)
[2020-11-05 04:08] LABS: CHLORIDE 85 mEq/L (98-107)
[2020-11-05 04:14] LABS: HCG SCREEN NEGATIVE; INR 1.1; PROTHROMBIN TIME 11.3 sec (9.6-11.0)
[2020-11-05 04:16] LABS: BETA HYDROXYBUTYRATE 8.7 mMol/L (0.0-0.3)
[2020-11-05] MEDS ORDERED: POTASSIUM CHLORIDE INJ 40 MEQ in DEXT 5% WATER 250 ML IV ONE (04:45)
[2020-11-05] MEDS ORDERED: INSULIN REGULAR (DRIP) 100 UNITS in SODIUM CHLORIDE 0.9% 99 ML IV ONE (04:45)
[2020-11-05] MEDS ORDERED: INSULIN REGULAR (DRIP) 100 UNITS in SODIUM CHLORIDE 0.9% 99 ML IV NR (04:45)
[2020-11-05 04:52] LABS: CLARITY URINE CLEAR (CLEAR); COLOR URINE YELLOW (YELLOW); KETONES URINE 3+ (NEGATIVE); LEUKOCYTE ESTERASE URINE NEGATIVE (NEGATIVE); NITRITE URINE NEGATIVE (NEGATIVE); OCCULT BLOOD URINE NEGATIVE (NEGATIVE); PROTEIN URINE NEGATIVE (NEGATIVE); SPECIFIC GRAVITY URINE 1.027 (1.005-1.030); UROBILINOGEN URINE 0.2 E.U./dL (0.2-1.0)
[2020-11-05 07:03] LABS: PLATELET ESTIMATE NORMAL
[2020-11-05] MEDS ORDERED: DEXTROSE 50% WATER 50ML SYRINGE IV PRN ×3 (10:30→23:00)
[2020-11-05] MEDS ORDERED: SODIUM CHLORIDE 0.9% 1,000 ML IV SCH (10:30)
[2020-11-05] MEDS: ENOXAPARIN 40MG/0.4ML SYR SUBCUT SCH (11:10)
[2020-11-05] MEDS: BLOOD SUGAR DIAGNOSTIC STRIP TEST SCH ×11 (11:10→21:49)
[2020-11-05] MEDS: ACETAMINOPHEN 325MG TABLET PO PRN (11:11)
[2020-11-05 11:24] LABS: BG BASE EXCESS -0.3 mmol/L (-2.0-2.0); BG CARBOXYHEMOGLOBIN 0.3 % (0.5-1.5); BG FRACTION INSPIRED OXYGEN 21; BG HCO3 ACT 23.3 mmol/L (22.0-26.0); BG METHEMOGLOBIN 0.3 % (0.0-1.5); BG OXYHEMOGLOBIN 97.4 % (94.0-97.0); BG PCO2 34.2 mmHg (35.0-45.0); BG PH 7.451 (7.350-7.450); BG PO2 117.5 mmHg (75.0-100.0); BG SAMPLE SITE RIGHT RADIAL; BG TOTAL HEMOGLOBIN 11.1 g/dL (12.0-18.0); BG VENT MODE ROOM AIR
[2020-11-05] MEDS ORDERED: INSULIN REGULAR (DRIP) 100 UNITS in SODIUM CHLORIDE 0.9% 100 ML IV SCH (12:00)
[2020-11-05 12:23] LABS: CHLORIDE 101 mEq/L (98-107)
[2020-11-05] MEDS: ONDANSETRON HCL 4MG/2ML INJ IV PRN ×3 (14:15→21:34)
[2020-11-05 14:28] LABS: PHOSPHORUS 1.5 mg/dL (2.5-4.9)
[2020-11-05] MEDS: KETOROLAC 30MG/ML VIAL IV PRN ×2 (14:56→21:34)
[2020-11-05] MEDS ORDERED: POTASSIUM CHLORIDE INJ 20 MEQ in DEXT 5%/0.9% NACL 1,000 ML IV SCH (15:00)
[2020-11-05] MEDS ORDERED: POTASSIUM PHOS,M-BASIC-D-BASIC 20 MMOL in DEXT 5% WATER 243.3333 ML IV NR (16:30)
[2020-11-05] MEDS ORDERED: DEXT 5%/0.9% NACL KCL 20MEQ/L 1,000 ML IV SCH (16:30)
[2020-11-05] MEDS ORDERED: VISCOUS LIDOCAINE 2% 15 ML UDC MM PRN (17:30)
[2020-11-05 17:45] LABS: CHLORIDE 103 mEq/L (98-107)
[2020-11-05] MEDS: AMOXICILLIN/POTASSIUM CLAVULANATE 875/125MG TAB PO SCH (18:26)
[2020-11-05] MEDS ORDERED: POTASSIUM CHLORIDE 20MEQ TABLET SR PO NR (23:00)
[2020-11-05] MEDS: ONDANSETRON HCL 4MG/2ML INJ IM PRN (23:20)
[2020-11-06] VITALS (16 sets, daily range): BP systolic 87–179; BP diastolic 44–111
[2020-11-06] MEDS: BLOOD SUGAR DIAGNOSTIC STRIP TEST SCH ×5 (00:27→23:42)
[2020-11-06] MEDS: INSULIN LISPRO 100 UNITS/ML SUBCUT SCH ×5 (00:30→23:43)
[2020-11-06] MEDS ORDERED: KETOROLAC 30MG/ML VIAL IM PRN (03:00)
[2020-11-06 05:45] LABS: BASOPHILS % 0.3 % (0.0-2.0); HEMATOCRIT. 36.3 % (36.0-48.0); HEMOGLOBIN. 12.3 g/dL (12.0-16.0); LYMPHOCYTES % 11.4 % (20.0-50.0); MEAN CORPUSCULAR HEMOGLOBIN 31.5 pg (28.0-32.0); MEAN PLATELET VOLUME 8.3 fl (7.4-10.4); MONOCYTES % 6.1 % (2.0-8.0); NEUTROPHILS % 82.2 % (40.0-76.0); PLATELET 245 x1000/uL (130-400); RED CELL DISTRIBUTION WIDTH 12.7 % (11.6-14.6)
[2020-11-06 05:49] LABS: CHLORIDE 98 mEq/L (98-107)
[2020-11-06] MEDS ORDERED: INSULIN GLARGINE UD 100 UNITS/ML SYR SUBCUT NR (06:00)
[2020-11-06] MEDS: ONDANSETRON HCL 4MG/2ML INJ IM PRN ×2 (06:33→10:26)
[2020-11-06] MEDS ORDERED: INSULIN LISPRO 100 UNITS/ML SUBCUT SCH ×2 (08:20→12:50)
[2020-11-06] MEDS: INSULIN GLARGINE UD 100 UNITS/ML SYR SUBCUT SCH ×2 (09:18→20:58)
[2020-11-06] MEDS: AMOXICILLIN/POTASSIUM CLAVULANATE 875/125MG TAB PO SCH ×2 (09:18→20:42)
[2020-11-06] MEDS ORDERED: ONDANSETRON HCL 4MG/2ML INJ IV PRN (09:45)
[2020-11-06] MEDS: ENOXAPARIN 40MG/0.4ML SYR SUBCUT SCH (10:27)
[2020-11-06] MEDS ORDERED: BLOOD SUGAR DIAGNOSTIC STRIP TEST SCH (12:50)
[2020-11-06] MEDS: METOCLOPRAMIDE HCL 10MG/2ML VIAL IV SCH ×2 (13:15→20:56)
[2020-11-06] MEDS: KETOROLAC 30MG/ML VIAL IV PRN ×2 (14:36→20:43)
[2020-11-06] MEDS: ACETAMINOPHEN 325MG TABLET PO PRN (23:41)
[2020-11-07] VITALS: BP 153/100
[2020-11-07 04:00] VITALS: BP 135/84
[2020-11-07] MEDS: KETOROLAC 30MG/ML VIAL IV PRN ×2 (04:52→21:56)
[2020-11-07] MEDS: INSULIN LISPRO 100 UNITS/ML SUBCUT SCH ×5 (04:56→17:31)
[2020-11-07] MEDS: METOCLOPRAMIDE HCL 10MG/2ML VIAL IV SCH ×3 (04:56→21:56)
[2020-11-07] MEDS: BLOOD SUGAR DIAGNOSTIC STRIP TEST SCH ×4 (04:57→23:59)
[2020-11-07 06:38] LABS: BASOPHILS % 0.4 % (0.0-2.0); EOSINOPHILS % 0.5 % (0.0-5.0); HEMATOCRIT. 34.7 % (36.0-48.0); HEMOGLOBIN. 12.1 g/dL (12.0-16.0); LYMPHOCYTES % 26.2 % (20.0-50.0); MEAN CORPUSCULAR HEMOGLOBIN 31.8 pg (28.0-32.0); MEAN CORPUSCULAR VOLUME 91.6 fL (81.0-99.0); MEAN PLATELET VOLUME 8.2 fl (7.4-10.4); MONOCYTES % 6.6 % (2.0-8.0); NEUTROPHILS % 66.3 % (40.0-76.0); PLATELET 214 x1000/uL (130-400); RED BLOOD CELL COUNT 3.79 mill/uL (4.2-5.4); RED CELL DISTRIBUTION WIDTH 12.4 % (11.6-14.6)
[2020-11-07 06:50] LABS: CHLORIDE 97 mEq/L (98-107)
[2020-11-07 08:00] VITALS: BP 158/98
[2020-11-07] MEDS: AMOXICILLIN/POTASSIUM CLAVULANATE 875/125MG TAB PO SCH ×2 (09:58→21:55)
[2020-11-07] MEDS: INSULIN GLARGINE UD 100 UNITS/ML SYR SUBCUT SCH ×2 (09:59→22:33)
[2020-11-07] MEDS: ENOXAPARIN 40MG/0.4ML SYR SUBCUT SCH (10:01)
[2020-11-07 12:00] VITALS: BP 152/96
[2020-11-07] MEDS ORDERED: POTASSIUM CHLORIDE 20MEQ TABLET SR PO NR ×2 (12:00→13:00)
[2020-11-07 16:00] VITALS: BP_SYST 155; BP_SYST 163; BP_DIAS 112; BP_DIAS 99
[2020-11-07] MEDS ORDERED: INSU100I32 SQ (18:29)
[2020-11-07] MEDS ORDERED: AMOX-424 MT (18:29)
[2020-11-07 20:00] VITALS: BP 135/93
[2020-11-08] VITALS: BP 139/76
[2020-11-08] MEDS: INSULIN LISPRO 100 UNITS/ML SUBCUT SCH ×3 (00:43→08:08)
[2020-11-08 04:00] VITALS: BP 137/85
[2020-11-08] MEDS: BLOOD SUGAR DIAGNOSTIC STRIP TEST SCH (05:55)
[2020-11-08 06:12] LABS: CHLORIDE 99 mEq/L (98-107)
[2020-11-08 06:13] LABS: BASOPHILS % 0.8 % (0.0-2.0); EOSINOPHILS % 1.7 % (0.0-5.0); HEMATOCRIT. 36.2 % (36.0-48.0); HEMOGLOBIN. 12.9 g/dL (12.0-16.0); LYMPHOCYTES % 34.5 % (20.0-50.0); MEAN CORPUSCULAR HEMOGLOBIN 32.5 pg (28.0-32.0); MEAN CORPUSCULAR VOLUME 91.4 fL (81.0-99.0); MONOCYTES % 7.9 % (2.0-8.0); NEUTROPHILS % 55.1 % (40.0-76.0); PLATELET 193 x1000/uL (130-400); RED BLOOD CELL COUNT 3.96 mill/uL (4.2-5.4); RED CELL DISTRIBUTION WIDTH 12.4 % (11.6-14.6)
[2020-11-08] MEDS: METOCLOPRAMIDE HCL 10MG/2ML VIAL IV SCH (06:23)
[2020-11-08 06:37] LABS: PHOSPHORUS 1.9 mg/dL (2.5-4.9)
[2020-11-08 08:00] VITALS: BP 119/81
[2020-11-08] MEDS: AMOXICILLIN/POTASSIUM CLAVULANATE 875/125MG TAB PO SCH (08:05)
[2020-11-08] MEDS: INSULIN GLARGINE UD 100 UNITS/ML SYR SUBCUT SCH (10:17)
[2020-11-08] MEDS ORDERED: POTASSIUM CHLORIDE 20MEQ TABLET SR PO NR ×2 (10:30→11:30)
[2020-11-08] MEDS: ENOXAPARIN 40MG/0.4ML SYR SUBCUT SCH (11:00)
[2020-11-08 11:02] VITALS: BP 115/72
== END 2020-11-08 11:45 | disposition home or self-care (01) | DRG 720 ==
LOC: ER 02:57 → CVICU 04:38 → ENRESERV 07:03 → 8WST 11-06 13:56
PROVIDERS: ADMIT Internal Medicine; ATTEND Internal Medicine
PROC: 02HV33Z Insertion of Infusion Device into Superior Vena Cava, Percutaneous Approach (ICD-10-PCS; principal; 2020-11-06)
PROC: B548ZZA Ultrasonography of Superior Vena Cava, Guidance (ICD-10-PCS; 2020-11-06)
DX: A41.9 Sepsis, unspecified organism (principal); E11.10 Type 2 diabetes mellitus with ketoacidosis without coma; J03.90 Acute tonsillitis, unspecified; Z90.49 Acquired absence of other specified parts of digestive tract; Z79.4 Long term (current) use of insulin; Z79.899 Other long term (current) drug therapy; Z86.39 Personal history of other endocrine, nutritional and metabolic disease; K29.70 Gastritis, unspecified, without bleeding
CPT/HCPCS: 36415; 36600; 71045; 74176; 76937; 80048; 80053; 81003; 82010; 82375; 82805; 82962; 83036; 83735; 84100; 84132; 84703; 85025; 93005; 93970; 99291; C1725; C1769; J1650; J1815; J1885; J2270; J2405; J2765; J3480; J3490; J7030; J7040; J7050; J7060

== ENCOUNTER 2020-12-26 18:05 | Emergency (ER) | payer MEDICAID ==
[~2020-12-26] VITALS: Ht 167.6 cm; Wt 63.0 kg
[~2020-12-26 18:05] MED LIST changes: +AMLO5TAB88 PO; +INSU100I32 SQ; -INSU100V34 SQ; +LISI10TA26 PO
[2020-12-26] MEDS ORDERED: ONDANSETRON HCL 4MG/2ML INJ IV ONE (19:45)
[2020-12-26] MEDS ORDERED: SODIUM CHLORIDE 0.9% 1,000 ML IV ONE ×2 (19:45→21:00)
[2020-12-26] MEDS ORDERED: MORPHINE SULFATE 4 MG/ML CPJ (NOT FOR IM USE) IV ONE (19:45)
[2020-12-26 20:11] LABS: BASOPHILS % 1.5 % (0.0-2.0); EOSINOPHILS % 1.2 % (0.0-5.0); HEMATOCRIT. 38.7 % (36.0-48.0); HEMOGLOBIN. 13.2 g/dL (12.0-16.0); LYMPHOCYTES % 31.9 % (20.0-50.0); MEAN CORPUSCULAR HEMOGLOBIN 31.6 pg (28.0-32.0); MEAN CORPUSCULAR VOLUME 92.9 fL (81.0-99.0); MEAN PLATELET VOLUME 7.9 fl (7.4-10.4); MONOCYTES % 5.7 % (2.0-8.0); NEUTROPHILS % 59.7 % (40.0-76.0); PLATELET 339 x1000/uL (130-400); RED BLOOD CELL COUNT 4.17 mill/uL (4.2-5.4); RED CELL DISTRIBUTION WIDTH 13.3 % (11.6-14.6)
[2020-12-26 20:21] LABS: CHLORIDE 95 mEq/L (98-107)
[2020-12-26 20:23] LABS: CLARITY URINE CLEAR (CLEAR); COLOR URINE YELLOW (YELLOW); KETONES URINE NEGATIVE (NEGATIVE); LEUKOCYTE ESTERASE URINE NEGATIVE (NEGATIVE); NITRITE URINE NEGATIVE (NEGATIVE); OCCULT BLOOD URINE NEGATIVE (NEGATIVE); PROTEIN URINE NEGATIVE (NEGATIVE); SPECIFIC GRAVITY URINE 1.044 (1.005-1.030); UROBILINOGEN URINE 0.2 E.U./dL (0.2-1.0)
[2020-12-26 20:32] LABS: BETA HYDROXYBUTYRATE 0.1 mMol/L (0.0-0.3)
[2020-12-26 20:55] LABS: HCG SCREEN NEGATIVE
[2020-12-26] MEDS ORDERED: METOCLOPRAMIDE HCL 10MG/2ML VIAL IV ONE (23:30)
[2020-12-27] MEDS ORDERED: METO-293 MT (00:55)
[2020-12-27] MEDS ORDERED: DOCU-138 MT (00:55)
[2020-12-27 01:10] VITALS: BP 125/74
== END 2020-12-27 01:17 | disposition home or self-care (01) ==
LOC: ER 18:12
DX: K59.00 Constipation, unspecified (principal); E11.65 Type 2 diabetes mellitus with hyperglycemia; I10 Essential (primary) hypertension; F12.10 Cannabis abuse, uncomplicated; Z90.49 Acquired absence of other specified parts of digestive tract; Z79.4 Long term (current) use of insulin
CPT/HCPCS: 36415; 74176; 80053; 81003; 81025; 82010; 82962; 83690; 84703; 85025; 93005; 96361; 96374; 96375; 99285; J2270; J2405; J2765; J7030

== ENCOUNTER 2021-03-18 15:21 | Inpatient (IN) | payer MEDICAID ==
[~2021-03-18] VITALS: Ht 167.6 cm; Wt 60.8 kg
[~2021-03-18 15:21] MED LIST changes: +DOCU-138 MT; +METO-293 MT
[2021-03-18] MEDS ORDERED: SODIUM CHLORIDE 0.9% 1000ML BAG (SEPSIS BOLUS) IV ONE (18:30)
[2021-03-18] MEDS ORDERED: MORPHINE SULFATE 4 MG/ML CPJ (NOT FOR IM USE) IV ONE (18:30)
[2021-03-18] MEDS ORDERED: METOCLOPRAMIDE HCL 10MG/2ML VIAL IV ONE (18:30)
[2021-03-18] MEDS ORDERED: INSULIN REGULAR (HUMULIN R) 300UNITS/3ML VIAL IV ONE (19:45)
[2021-03-18 19:50] LABS: BASOPHILS % 1.4 % (0.0-2.0); EOSINOPHILS % 0.2 % (0.0-5.0); HEMATOCRIT. 48.9 % (36.0-48.0); LYMPHOCYTES % 20.9 % (20.0-50.0); MEAN CORPUSCULAR HEMOGLOBIN 32.1 pg (28.0-32.0); MEAN CORPUSCULAR VOLUME 92.3 fL (81.0-99.0); MEAN PLATELET VOLUME 9.1 fl (7.4-10.4); MONOCYTES % 3.1 % (2.0-8.0); NEUTROPHILS % 74.4 % (40.0-76.0); PLATELET 256 x1000/uL (130-400); RED CELL DISTRIBUTION WIDTH 12.9 % (11.6-14.6)
[2021-03-18 19:54] LABS: CHLORIDE 99 mEq/L (98-107)
[2021-03-18 23:25] VITALS: BP 134/89
[2021-03-19 00:26] VITALS: BP 134/89
[2021-03-19] MEDS ORDERED: LORAZEPAM 2MG/ML CPJ IV PRN (00:30)
[2021-03-19] MEDS ORDERED: DEXTROSE 50% WATER 50ML SYRINGE IV PRN (00:30)
[2021-03-19] MEDS ORDERED: ACETAMINOPHEN 325MG TABLET PO PRN ×2 (00:30)
[2021-03-19] MEDS ORDERED: CLONIDINE 0.1MG TABLET PO PRN (00:30)
[2021-03-19] MEDS ORDERED: DIPHENHYDRAMINE 50MG/ML VIAL IV PRN (00:30)
[2021-03-19] MEDS ORDERED: ONDANSETRON HCL 4MG/2ML INJ IV PRN (00:30)
[2021-03-19] MEDS: SODIUM CHLORIDE 0.9% 1,000 ML IV SCH ×2 (01:37→08:46)
[2021-03-19] MEDS ORDERED: PANTOPRAZOLE SODIUM 40 MG/VIAL IV SCH ×2 (02:15→09:00)
[2021-03-19 04:00] VITALS: BP 137/84
[2021-03-19] MEDS: BLOOD SUGAR DIAGNOSTIC STRIP TEST SCH ×2 (06:45→11:44)
[2021-03-19 08:00] VITALS: BP 121/67
[2021-03-19] MEDS: INSULIN LISPRO 100 UNITS/ML SUBCUT SCH ×2 (08:40→12:43)
[2021-03-19] MEDS ORDERED: INSULIN GLARGINE UD 100 UNITS/ML SYR SUBCUT SCH ×4 (10:00→22:00)
[2021-03-19 13:08] VITALS: BP 121/67
== END 2021-03-19 14:48 | disposition home or self-care (01) | DRG 48 ==
LOC: ER 15:21 → 6WST 20:10 → EDBEDREQTM 20:11 → EDBEDREQ 20:11 → ENRESERV 22:35
PROVIDERS: ADMIT Internal Medicine; ATTEND Internal Medicine
DX: E11.43 Type 2 diabetes mellitus with diabetic autonomic (poly)neuropathy (principal); E11.65 Type 2 diabetes mellitus with hyperglycemia; K31.84 Gastroparesis; E86.0 Dehydration; F12.90 Cannabis use, unspecified, uncomplicated; F17.200 Nicotine dependence, unspecified, uncomplicated; Z83.3 Family history of diabetes mellitus; Z90.49 Acquired absence of other specified parts of digestive tract; R11.2 Nausea with vomiting, unspecified
CPT/HCPCS: 36415; 74021; 80053; 82010; 82962; 83036; 83605; 85025; 93005; 99285; C9113; J1200; J1815; J2270; J2765; J7030

== ENCOUNTER 2021-03-25 17:32 | Emergency (ER) | payer MEDICAID ==
[~2021-03-25] VITALS: Ht 167.6 cm; Wt 62.0 kg
[2021-03-26] MEDS ORDERED: METOCLOPRAMIDE HCL 10MG/2ML VIAL IV STA (00:21)
[2021-03-26] MEDS ORDERED: SODIUM CHLORIDE 0.9% 1,000 ML IV ONE (00:30)
[2021-03-26] MEDS ORDERED: KETOROLAC 15MG/ML VIAL IV ONE (00:45)
[2021-03-26 01:08] LABS: CHLORIDE 103 mEq/L (98-107)
[2021-03-26 01:14] LABS: ETHANOL BLOOD < 10 mg/dL
[2021-03-26 01:22] LABS: BETA HYDROXYBUTYRATE 0.2 mMol/L (0.0-0.3)
[2021-03-26 01:42] LABS: BASOPHILS % 0.2 % (0.0-2.0); EOSINOPHILS % 0.8 % (0.0-5.0); HEMATOCRIT. 37.7 % (36.0-48.0); HEMOGLOBIN. 13.3 g/dL (12.0-16.0); LYMPHOCYTES % 30.5 % (20.0-50.0); MEAN CORPUSCULAR VOLUME 90.8 fL (81.0-99.0); MEAN PLATELET VOLUME 8.5 fl (7.4-10.4); MONOCYTES % 6.2 % (2.0-8.0); NEUTROPHILS % 62.3 % (40.0-76.0); PLATELET 232 x1000/uL (130-400); RED BLOOD CELL COUNT 4.16 mill/uL (4.2-5.4); RED CELL DISTRIBUTION WIDTH 13.1 % (11.6-14.6)
[2021-03-26 02:08] LABS: CLARITY URINE TURBID (CLEAR); COLOR URINE YELLOW (YELLOW); KETONES URINE TRACE (NEGATIVE); LEUKOCYTE ESTERASE URINE NEGATIVE (NEGATIVE); NITRITE URINE NEGATIVE (NEGATIVE); OCCULT BLOOD URINE NEGATIVE (NEGATIVE); PH URINE 8.5 (4.5-8.0); PROTEIN URINE TRACE (NEGATIVE); SPECIFIC GRAVITY URINE 1.028 (1.005-1.030); UROBILINOGEN URINE 0.2 E.U./dL (0.2-1.0)
[2021-03-26 02:38] LABS: *BARBITURATES SCREEN URINE NEGATIVE (NEGATIVE)
[2021-03-26 02:39] LABS: *AMPHETAMINES SCREEN URINE NEGATIVE (NEGATIVE); *BENZODIAZEPINES SCREEN URINE NEGATIVE (NEGATIVE); *COCAINE SCREEN URINE NEGATIVE (NEGATIVE); METHADONE URINE SCREEN NEGATIVE (NEGATIVE); PHENCYCLIDINE URINE SCREEN NEGATIVE (NEGATIVE)
[2021-03-26 02:41] LABS: CANNABINOID URINE SCREEN PRESUMTIVE POSITIVE (NEGATIVE); OPIATES URINE SCREEN PRESUMTIVE POSITIVE (NEGATIVE)
[2021-03-26] MEDS ORDERED: POTASSIUM CHLORIDE 20MEQ TABLET SR PO NR (03:00)
[2021-03-26 03:15] VITALS: BP 158/92
== END 2021-03-26 03:40 | disposition home or self-care (01) ==
LOC: ER 18:21
DX: F12.188 Cannabis abuse with other cannabis-induced disorder (principal); R10.9 Unspecified abdominal pain; E10.9 Type 1 diabetes mellitus without complications; Z79.4 Long term (current) use of insulin; Z90.49 Acquired absence of other specified parts of digestive tract
CPT/HCPCS: 36415; 80053; 80305; 80320; 81003; 81025; 82010; 82962; 83605; 83690; 85025; 96361; 96374; 96375; 99285; J1885; J2765; J7030; G0480

== ENCOUNTER 2021-04-24 02:34 | Inpatient (IN) | payer MEDICAID ==
[~2021-04-24] VITALS: Ht 167.6 cm; Wt 62.6 kg
[2021-04-24] MEDS ORDERED: SODIUM CHLORIDE 0.9% 1,000 ML IV ONE ×2 (05:15→09:00)
[2021-04-24] MEDS ORDERED: MORPHINE SULFATE 4 MG/ML CPJ (NOT FOR IM USE) IV ONE ×2 (05:15→08:15)
[2021-04-24] MEDS ORDERED: ONDANSETRON HCL 4MG/2ML INJ IV ONE (05:15)
[2021-04-24] MEDS ORDERED: METOCLOPRAMIDE HCL 10MG/2ML VIAL IV ONE (05:30)
[2021-04-24 06:21] LABS: BASOPHILS % 0.5 % (0.0-2.0); HEMATOCRIT. 38.7 % (36.0-48.0); HEMOGLOBIN. 12.5 g/dL (12.0-16.0); LYMPHOCYTES % 8.6 % (20.0-50.0); MEAN CORPUSCULAR HEMOGLOBIN 31.5 pg (28.0-32.0); MEAN CORPUSCULAR VOLUME 97.3 fL (81.0-99.0); MEAN PLATELET VOLUME 8.7 fl (7.4-10.4); MONOCYTES % 2.6 % (2.0-8.0); NEUTROPHILS % 88.3 % (40.0-76.0); PLATELET 248 x1000/uL (130-400); RED BLOOD CELL COUNT 3.98 mill/uL (4.2-5.4); RED CELL DISTRIBUTION WIDTH 13.7 % (11.6-14.6)
[2021-04-24 06:24] LABS: CHLORIDE 93 mEq/L (98-107)
[2021-04-24 06:26] LABS: HCG SCREEN NEGATIVE
[2021-04-24 06:31] LABS: BETA HYDROXYBUTYRATE 9.8 mMol/L (0.0-0.3)
[2021-04-24] MEDS ORDERED: INSULIN REGULAR (DRIP) 100 UNITS in SODIUM CHLORIDE 0.9% 99 ML IV SCH (06:45)
[2021-04-24 06:54] LABS: BG BASE EXCESS -14.3 mmol/L (-2.0-2.0); BG CARBOXYHEMOGLOBIN 0.3 % (0.5-1.5); BG DEOXYHEMOGLOBIN 2.3 % (0.0-5.0); BG METHEMOGLOBIN 0.1 % (0.0-1.5); BG OXYGEN SATURATION 97.7 % (92.0-98.5); BG OXYHEMOGLOBIN 97.3 % (94.0-97.0); BG PCO2 20.6 mmHg (35.0-45.0); BG PH 7.303 (7.350-7.450); BG PO2 113.8 mmHg (75.0-100.0); BG SAMPLE SITE RIGHT RADIAL; BG TOTAL HEMOGLOBIN 12.5 g/dL (12.0-18.0); BG VENT MODE ROOM AIR
[2021-04-24] MEDS ORDERED: NALOXONE HCL 0.4MG/ML VIAL IV PRN (14:45)
[2021-04-24] MEDS ORDERED: SODIUM CHLORIDE 0.9% 1,000 ML IV SCH (14:45)
[2021-04-24] MEDS: MORPHINE SULFATE 2 MG/ML CPJ (NOT FOR IM USE) IV PRN ×2 (14:59→20:01)
[2021-04-24] MEDS: PANTOPRAZOLE SODIUM 40 MG/VIAL IV SCH (14:59)
[2021-04-24 15:34] LABS: PHOSPHORUS 7.4 mg/dL (2.5-4.9)
[2021-04-24] MEDS: ONDANSETRON HCL 4MG/2ML INJ IV PRN ×2 (16:40→20:01)
[2021-04-24] MEDS ORDERED: DEXT 5%/0.9% NACL 1,000 ML IV SCH (17:30)
[2021-04-24 20:58] LABS: CHLORIDE 114 mEq/L (98-107)
[2021-04-24] MEDS ORDERED: METOCLOPRAMIDE HCL 10MG TABLET PO PRN (21:03)
[2021-04-24] MEDS ORDERED: METOCLOPRAMIDE HCL 10MG/2ML VIAL IV PRN (21:14)
[2021-04-24] MEDS ORDERED: ACETAMINOPHEN 325MG TABLET PO PRN (21:45)
[2021-04-24] MEDS ORDERED: PANTOPRAZOLE SODIUM 40 MG/VIAL IV SCH (21:45)
[2021-04-24] MEDS ORDERED: LORAZEPAM 2MG/ML CPJ IV PRN (21:45)
[2021-04-24] MEDS ORDERED: ONDANSETRON HCL 4MG/2ML INJ IV PRN (21:45)
[2021-04-24] MEDS: SODIUM CHLORIDE 0.45% 1,000 ML IV SCH (21:45)
[2021-04-24] MEDS ORDERED: DOCUSATE SODIUM 100MG CAPSULE PO PRN (21:45)
[2021-04-24] MEDS: INSULIN GLARGINE UD 100 UNITS/ML SYR SUBCUT SCH (22:57)
[2021-04-24] MEDS ORDERED: ENOXAPARIN 40MG/0.4ML SYR SUBCUT SCH (23:00)
[2021-04-24] MEDS ORDERED: POTASSIUM CHLORIDE INJ 40 MEQ in DEXT 5% WATER 250 ML IV NR (23:00)
[2021-04-24] MEDS: AMLODIPINE 5MG TABLET PO SCH (23:02)
[2021-04-25] MEDS ORDERED: DEXTROSE 50% WATER 50ML SYRINGE IV PRN (02:30)
[2021-04-25 03:00] VITALS: BP 158/82
[2021-04-25] MEDS: INSULIN LISPRO (HIGH DOSE) 100 UNITS/ML SUBCUT SCH ×3 (03:22→12:23)
[2021-04-25] MEDS: METOCLOPRAMIDE HCL 10MG/2ML VIAL IV SCH ×2 (05:05→12:48)
[2021-04-25] MEDS: MORPHINE SULFATE 2 MG/ML CPJ (NOT FOR IM USE) IV PRN ×2 (05:21→13:03)
[2021-04-25] MEDS: INSULIN LISPRO 100 UNITS/ML SUBCUT SCH ×2 (05:29→12:10)
[2021-04-25] MEDS: BLOOD SUGAR DIAGNOSTIC STRIP TEST SCH ×2 (05:40→12:21)
[2021-04-25 06:33] LABS: BASOPHILS % 0.3 % (0.0-2.0); HEMOGLOBIN. 10.7 g/dL (12.0-16.0); LYMPHOCYTES % 12.7 % (20.0-50.0); MEAN CORPUSCULAR HEMOGLOBIN 31.9 pg (28.0-32.0); MEAN CORPUSCULAR VOLUME 92.1 fL (81.0-99.0); MEAN PLATELET VOLUME 8.3 fl (7.4-10.4); PLATELET 197 x1000/uL (130-400); RED BLOOD CELL COUNT 3.37 mill/uL (4.2-5.4); RED CELL DISTRIBUTION WIDTH 13.3 % (11.6-14.6)
[2021-04-25 08:00] VITALS: BP 117/58
[2021-04-25] MEDS: INSULIN GLARGINE UD 100 UNITS/ML SYR SUBCUT SCH (08:28)
[2021-04-25 08:35] LABS: CHLORIDE 113 mEq/L (98-107)
[2021-04-25] MEDS ORDERED: LISINOPRIL 10MG TABLET PO SCH (09:00)
[2021-04-25] MEDS: AMLODIPINE 5MG TABLET PO SCH (09:00)
[2021-04-25] MEDS: PANTOPRAZOLE SODIUM 40 MG/VIAL IV SCH (09:07)
[2021-04-25] MEDS ORDERED: CEFTRIAXONE 1 G PREMIX 50 ML IV SCH (11:00)
[2021-04-25] MEDS ORDERED: CLONIDINE 0.1MG TABLET PO PRN (12:30)
[2021-04-25] MEDS ORDERED: POTASSIUM CHLORIDE INJ 40 MEQ in DEXT 5% WATER 250 ML IV NR (12:30)
[2021-04-25] MEDS ORDERED: CEFTRIAXONE 1,000 MG in DEXTROSE 5% WATER 50 ML IV SCH (12:30)
[2021-04-25] MEDS ORDERED: POTASSIUM CHLORIDE 20MEQ TABLET SR PO NR (12:45)
[2021-04-25] MEDS: SODIUM CHLORIDE 0.45% 1,000 ML IV SCH (12:49)
[2021-04-25 13:03] VITALS: BP 174/83
== END 2021-04-25 14:55 | disposition left against medical advice (07) | DRG 720 ==
LOC: ER 02:34 → MICUSO 08:08 → 8WST 04-25 01:31
PROVIDERS: ADMIT Internal Medicine; ATTEND Internal Medicine
DX: A41.9 Sepsis, unspecified organism (principal); E11.10 Type 2 diabetes mellitus with ketoacidosis without coma; E11.43 Type 2 diabetes mellitus with diabetic autonomic (poly)neuropathy; K31.84 Gastroparesis; F41.9 Anxiety disorder, unspecified; Z53.29 Procedure and treatment not carried out because of patient's decision for other reasons
CPT/HCPCS: 36415; 36600; 71045; 80048; 80053; 82010; 82375; 82805; 82962; 83036; 83735; 83880; 84100; 84145; 84484; 84703; 85025; 93005; 99291; C9113; J0696; J1650; J1815; J2060; J2270; J2405; J2765; J3480; J7030; J7042; J7050; J7060; J8597

== ENCOUNTER 2021-08-21 14:39 | Emergency (ER) | payer MEDICAID ==
[~2021-08-21] VITALS: Ht 167.6 cm; Wt 62.0 kg
[2021-08-21] MEDS ORDERED: ONDANSETRON HCL 4MG/2ML INJ IV NR (15:13)
[2021-08-21] MEDS ORDERED: KETOROLAC 30MG/ML VIAL IV NR (15:13)
[2021-08-21] MEDS ORDERED: SODIUM CHLORIDE 0.9% 1,000 ML IV ONE ×3 (15:15→21:15)
[2021-08-21 18:12] LABS: BASOPHILS % 1.2 % (0.0-2.0); EOSINOPHILS % 0.3 % (0.0-5.0); HEMATOCRIT. 40.5 % (36.0-48.0); HEMOGLOBIN. 13.8 g/dL (12.0-16.0); LYMPHOCYTES % 19.8 % (20.0-50.0); MEAN CORPUSCULAR HEMOGLOBIN 30.9 pg (28.0-32.0); MEAN CORPUSCULAR VOLUME 91.1 fL (81.0-99.0); MEAN PLATELET VOLUME 7.9 fl (7.4-10.4); NEUTROPHILS % 73.7 % (40.0-76.0); PLATELET 348 x1000/uL (130-400); RED BLOOD CELL COUNT 4.45 mill/uL (4.2-5.4); RED CELL DISTRIBUTION WIDTH 13.1 % (11.6-14.6)
[2021-08-21 18:20] LABS: CHLORIDE 100 mEq/L (98-107)
[2021-08-21 18:26] LABS: BETA HYDROXYBUTYRATE 1.7 mMol/L (0.0-0.3)
[2021-08-21 18:48] LABS: HCG SCREEN NEGATIVE
[2021-08-21] MEDS ORDERED: MAGNESIUM/ALUMINUM HYDROXIDE/SIMETHICONE 30ML UDC PO ONE (19:15)
[2021-08-21] MEDS ORDERED: MORPHINE SULFATE 4 MG/ML CPJ (NOT FOR IM USE) IV STA (21:01)
[2021-08-21] MEDS ORDERED: ONDANSETRON HCL 4MG/2ML INJ IV STA (21:01)
[2021-08-21] MEDS ORDERED: POTASSIUM CHLORIDE 20MEQ TABLET SR PO ONE (21:15)
[2021-08-22] VITALS: BP 149/92
== END 2021-08-22 00:55 | disposition home or self-care (01) ==
LOC: ER 14:39
DX: R10.33 Periumbilical pain (principal); E11.65 Type 2 diabetes mellitus with hyperglycemia; F41.9 Anxiety disorder, unspecified; Z90.49 Acquired absence of other specified parts of digestive tract; Z79.4 Long term (current) use of insulin
CPT/HCPCS: 36415; 71045; 74176; 80053; 82010; 82962; 83690; 84703; 85025; 93005; 96361; 96374; 96375; 96376; 99285; J1885; J2270; J2405; J7030; Z7610